=== PATIENT | female | born 1985 | race Caucasian/White ===

== ENCOUNTER → 2018-12-10 14:13 | Outpatient (CLI) | payer OTHER, BC, SELFPAY ==
[2018-12-10 17:04] LABS: GTT (PREG) 1 Hour PP 50gm Dose 125 mg/dL (76-139)
[2018-12-10 17:27] LABS: Hematocrit 36.9 % (36-46)
== END ==
PROVIDERS: PCP Nurse Practitioner Family; Visit Provider Obstetrics & Gynecology
DX: Z3A.23 23 weeks gestation of pregnancy (principal)
CPT/HCPCS: 36415; 82950; 85014; 85018

== ENCOUNTER 2019-02-21 10:16 | Inpatient (IN) | payer OTHER, BC, SELFPAY ==
[2019-02-21] VITALS (39 sets, daily range): BP systolic 136–213; BP diastolic 76–116; PULSE 69–96; RESP 11–24; TEMP 36–36.9; O2SAT 94–100; BMI 50.7; BMI 50.1
--- NOTE | 2019-02-21 | DI.CT.S_ITS ---
PROCEDURE: CT HEAD/BRAIN WO CON INDICATIONS: Severe hypertension, confusion TECHNIQUE: Noncontrast 4.5 mm thick angled axial sections acquired from the foramen magnum to the vertex, with coronal and sagittal reformats. For radiation dose reduction, the following was used: automated exposure control, adjustment of mA and/or kV according to patient size. COMPARISON: [facility], CT, CT HEAD/BRAIN WO CON, 02/21/2019, 11:04. FINDINGS: Image quality: Excellent. CSF spaces: Basal cisterns are patent. No extra-axial fluid collections. Ventricles are normal in size and shape. Brain: No midline shift. No intracranial masses or hemorrhage. Reid-white matter interface is normal. Skull and face: Calvarium and visualized facial bones are intact, without suspicious lesions. Sinuses: Visualized sinuses and mastoids are clear. IMPRESSION: No acute intracranial process Dictated by: Foreign Godfrey M.D. on 02/21/2019 at 19:01 Approved by: Foreign Godfrey M.D. on 02/21/2019 at 19:03
--- NOTE | 2019-02-21 10:32 | ED.HA ---
HPI - Headache General Chief Complaint: Headache Stated Complaint: Headache t-2 days Time Seen by Provider: 02/21/19 10:32 Source: patient Mode of arrival: ambulatory Limitations: no limitations History of Present Illness HPI Narrative: Patient is a 33-year-old female currently 38 weeks scheduled for next week presenting with 4 days of a headache. She says she has not gotten headaches this entire until the last 4 days. She does have hypertension she is taking labetalol she did take it this morning. She had some visual changes she has difficulty speaking and difficulty walking. Her headache got extremely bad last night it has not let up. No fever. No abdominal pain. 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 Overall she is not able to answer all questions confused on year MD Complaint: headache Related Data Previous Rx's Medication Instructions Recorded labetalol 100 mg tablet 100 mg PO BID #60 tab 12/10/18 hydroxyzine HCl 25 mg tablet 25 mg PO TID-QID PRN #20 tab 02/04/19 Allergies Allergy/AdvReac Type Severity Reaction Status Date / Time adhesive AdvReac Mild Rash Verified 02/21/19 10:55 silicone AdvReac Mild Rash and Verified 02/21/19 10:55 Hives Review of Systems Review of Systems ROS Unobtainable: All systems reviewed & are unremarkable except as noted in HPI and below Constitutional Denies chills, Denies fever(s), Reports headache(s), Denies lethargy and Denies weakness Eyes Reports blurry vision ENT Ears, Nose, Mouth, and Throat: Denies change in voice, Reports headache(s), Denies neck pain and Denies sore throat Cardiovascular Denies chest pain, Denies irregular heart rhythm, Denies lightheadedness, Denies palpitations, Denies dyspnea, Denies dyspnea on exertion and Denies orthopnea Respiratory Denies cough, Denies dyspnea, Denies dyspnea on exertion and Denies wheezing Gastrointestinal Gastrointestinal: Denies abdominal pain, Denies change in bowel habits, Denies diarrhea, Denies nausea and Denies vomiting Genitourinary Denies hematuria, Denies flank pain, Denies urinary incontinence and Denies urinary urgency Musculoskeletal Denies neck pain Integumentary/Breasts Denies pruritus, Denies erythema, Denies rash and Denies wounds Neurologic Reports headache(s) and Denies weakness Endocrine Denies palpitations Allergic/Immunologic Denies wheezing [facility] Medical History Hypertension (Acute) Social History Smoking Status: Former smoker Social History Smoking Status: Never smoker Exam Initial Vital Signs Initial Vital Signs: Vital Signs Temperature 98.4 F 02/21/19 10:34 Pulse Rate 82 02/21/19 10:34 Respiratory Rate 20 02/21/19 10:34 Blood Pressure 158/82 H 02/21/19 10:34 Pulse Oximetry 100 02/21/19 10:34 GENERAL: Alert gravid female mild distress HEENT: Head atraumatic,EOMI, pupils reactive, face symmetric, CARDIOVASCULAR: Regular rate and rhythm without murmurs, rubs or gallops. RESPIRATORY: Breath sounds equal bilaterally, no wheezes rales or rhonchi. ABDOMEN: Soft, nontender. Normoactive bowel sounds all 4 quadrants. No guarding or rebound. EXTREMITIES: Normal range of motion, no clubbing or edema. Neurovascularly intact NEUROLOGICAL: Alert and oriented x2. Some intermittent aphasia. Does not understand all commands only some commands. Took a long time to figure out finger to nose. she lifted up both lower extremities and held them for 5 seconds but unable to understand [id number]. Very confused no facial droop SKIN: Warm, dry, no laceration, no petechiae, no rashes or lesions. Course Orders Ordered: ED Orders 02/21/19 10:43 CT head/brain wo con Stat 02/21/19 10:50 Complete Blood Count AUTO DIFF Stat Comprehensive Metabolic Panel Stat Partial Thromboplastin Time Stat Prothrombin Time INR Stat 02/21/19 10:55 Uric Acid Stat Urinalysis and Microscopic Stat 02/21/19 12:52 Packed Cells Stat Type and Screen Stat 02/21/19 16:07 MRSA PCR Urgent 02/21/19 16:29 Consult to Bench Tool Maker Routine Education, smoking cessation ONGOING 02/21/19 17:55 Basic Metabolic Panel Urgent Complete Blood Count AUTO DIFF Urgent Hepatic (Liver) Panel Urgent Magnesium Urgent Uric Acid Urgent 02/21/19 23:59 Magnesium Urgent Acetaminophen (Tylenol) 650 mg PO Q6HR PRN PRN Reason: As Needed for Fever/Mild Pain Docusate Sodium (Colace) 250 mg PO DAILY [facility] Emollient Ointment (Weo-B-Flysno) 1 applic TOP PRN PRN PRN Reason: Magnesium Sulfate (Magnesium Sulfate) 20 gm in 500 mls @ 50 mls/hr IV CONT [facility] Last Admin: 02/21/19 13:00 Dose: 50 mls/hr Lactated Ringer's (Lactated Ringers) 1,000 mls @ 25 mls/hr IV CONT [facility] Last Admin: 02/21/19 17:31 Dose: 25 mls/hr HYDROMORPHONE BOX ESTIMATOR (6MG/30ML) (Dilaudid Rope Rider (6mg/30ml)) 6 mg in 30 mls @ 0 mls/hr IV Q8HR PRN PRN Reason: moderate pain Ibuprofen (Advil) 600 mg PO Q6HR PRN PRN Reason: As Needed for Fever/Mild Pain Ketorolac Tromethamine (Toradol) 30 mg IV Q6HR [facility] Stop: 02/22/19 12:01 Magnesium Hydroxide (Milk Of Magnesia) 30 ml PO BEDTIME PRN PRN Reason: Constipation Metoclopramide HCl (Reglan) 10 mg IV Q6HR PRN PRN Reason: Nausea And Vomiting Naloxone HCl (Narcan) 0.2 mg IV Q2MIN PRN PRN Reason: Opiate Reversal Naloxone HCl (Narcan) 0.2 mg IV Q2MIN PRN; Protocol PRN Reason: Opiate Reversal Ondansetron HCl (Zofran Odt) 4 mg PO Q6HR PRN PRN Reason: Nausea Ondansetron HCl (Zofran) 4 mg IV Q6HR PRN PRN Reason: Nausea And Vomiting Last Admin: 02/21/19 17:24 Dose: 4 mg Oxycodone HCl (Percolone) 5 mg PO Q4HR PRN PRN Reason: Pain, Moderate (4-6) Oxycodone/Acetaminophen (Percocet 5/325) 2 tab PO Q4HR PRN PRN Reason: Pain, Severe (7-10) Vit/Calcium/Iron/Folic Ac (Prenatabs Rx) 1 tab PO DAILY [facility] Rho Immune Globulin (Hyperrho S-D) 1,500 unit IM NOW PRN PRN Reason: Mom Rh neg, Infant Rh pos Discontinued Medications Carboprost Tromethamine (Hemabate) 250 mcg IM NOW ONE Stop: 02/21/19 15:10 Last Admin: 02/21/19 15:11 Dose: 250 mcg Diphtheria/Tetanus/Acell Pertussis (Adacel) 0.5 ml IM .ONCE ONE Stop: 02/21/19 16:30 Hydralazine HCl (Apresoline) 10 mg IV NOW ONE Stop: 02/21/19 12:09 Last Admin: 02/21/19 12:08 Dose: 10 mg Hydralazine HCl (Apresoline) 10 mg IV Q20M PRN PRN Reason: Hypertension Hydromorphone HCl (Dilaudid) 0.25 mg IV Q5MIN PRN PRN Reason: Pain, Mild (1-3) Hydromorphone HCl (Dilaudid) 0.5 mg IV Q5MIN PRN PRN Reason: Pain, Moderate (4-6) Last Admin: 02/21/19 15:38 Dose: 0.5 mg Admin: 02/21/19 15:11 Dose: 0.5 mg Admin: 02/21/19 15:01 Dose: 0.5 mg Admin: 02/21/19 14:55 Dose: 0.5 mg Hydromorphone HCl (Dilaudid) 1 mg IV Q5MIN PRN PRN Reason: Pain, Severe (7-10) Hydroxyzine HCl (Vistaril) 25 mg IM NOW PRN PRN Reason: Pain, Mild (1-3) Sodium Chloride (Normal Saline 0.9%) 1,000 mls @ 1,000 mls/hr IV BOLUS ONE Stop: 02/21/19 11:42 Last Admin: 02/21/19 11:15 Dose: 1,000 mls/hr Magnesium Sulfate (Magnesium Sulfate) 4 gm in 100 mls @ 50 mls/hr IV NOW ONE Stop: 02/21/19 14:19 Last Infusion: 02/21/19 13:00 Dose: 0 mls/hr Admin: 02/21/19 12:20 Dose: 50 mls/hr Cefazolin Sodium/Dextrose (Ancef) 2 gm in 100 mls @ 200 mls/hr IV NOW ONE Stop: 02/21/19 15:33 Last Infusion: 02/21/19 13:21 Dose: 0 mls/hr Admin: 02/21/19 13:15 Dose: 200 mls/hr Acetaminophen (Ofirmev) 1,000 mg in 100 mls @ 400 mls/hr IV NOW ONE Stop: 02/21/19 15:18 Last Infusion: 02/21/19 17:18 Dose: 0 mls/hr Infusion: 02/21/19 13:31 Dose: 400 mls/hr Admin: 02/21/19 13:20 Dose: 400 mls/hr Calcium Gluconate 4.65 meq/ (Dextrose) 60 mls @ 120 mls/hr IV NOW ONE Stop: 02/21/19 17:09 Labetalol HCl (Trandate) 10 mg IV NOW ONE Stop: 02/21/19 10:44 Last Admin: 02/21/19 10:56 Dose: 10 mg Labetalol HCl (Trandate) 10 mg IV NOW ONE Stop: 02/21/19 11:24 Last Admin: 02/21/19 11:23 Dose: 10 mg Labetalol HCl (Trandate) 10 mg IV Q20M PRN PRN Reason: Blood Pressure - High Last Admin: 02/21/19 14:58 Dose: 10 mg Labetalol HCl (Trandate) 10 mg IV NOW ONE Stop: 02/21/19 17:13 Measles/Mumps/Rubella Vaccine Live (Mmr Ii Vaccine With Diluent) 0.5 ml SUBCUT .ONCE ONE Stop: 02/21/19 16:30 Morphine Sulfate (Morphine) 4 mg IV NOW ONE Stop: 02/21/19 11:27 Last Admin: 02/21/19 11:27 Dose: 4 mg Ondansetron HCl (Zofran) 4 mg IV NOW ONE Stop: 02/21/19 11:43 Last Admin: 02/21/19 11:42 Dose: 4 mg Oxytocin (Pitocin) 10 unit IM NOW ONE Stop: 02/21/19 15:10 Last Admin: 02/21/19 14:00 Dose: 10 unit Vital Signs - 8 hr 02/21/19 10:34 02/21/19 11:12 02/21/19 11:21 Temperature 98.4 F Pulse Rate 82 78 78 Respiratory Rate 20 14 Blood Pressure 158/82 H 181/106 H Blood Pressure [Left Arm] 173/112 H Pulse Oximetry 100 100 02/21/19 11:23 02/21/19 11:30 02/21/19 12:07 Temperature Pulse Rate 82 78 79 Respiratory Rate 16 19 Blood Pressure 176/105 H 182/111 H Blood Pressure [Left Arm] 176/104 H Pulse Oximetry 100 100 02/21/19 12:08 02/21/19 14:31 02/21/19 14:36 Temperature 97.4 F L Pulse Rate 78 92 H 88 Respiratory Rate 13 13 Blood Pressure 213/116 H 168/99 H 165/94 H Blood Pressure [Left Arm] Pulse Oximetry 96 98 02/21/19 14:41 02/21/19 14:46 02/21/19 14:49 Temperature Pulse Rate 77 90 83 Respiratory Rate 12 13 19 Blood Pressure 174/104 H 173/100 H 147/88 H Blood Pressure [Left Arm] Pulse Oximetry 96 99 100 02/21/19 14:51 02/21/19 14:56 02/21/19 15:01 Temperature 97.7 F Pulse Rate 85 94 H 80 Respiratory Rate 17 16 11 L Blood Pressure 179/99 H 178/100 H 161/90 H Blood Pressure [Left Arm] Pulse Oximetry 98 99 99 02/21/19 15:04 02/21/19 15:06 02/21/19 15:16 Temperature Pulse Rate 84 78 Respiratory Rate 12 14 Blood Pressure 213/116 H 148/88 H 166/92 H Blood Pressure [Left Arm] Pulse Oximetry 98 97 02/21/19 15:21 02/21/19 15:26 02/21/19 15:42 Temperature 98.5 F 96.8 F L Pulse Rate 76 80 89 Respiratory Rate 15 16 18 Blood Pressure 165/95 H 164/94 H 147/82 H Blood Pressure [Left Arm] Pulse Oximetry 100 100 100 02/21/19 15:54 02/21/19 16:15 02/21/19 16:29 Temperature 97.3 F L Pulse Rate 91 H 89 89 Respiratory Rate 15 16 Blood Pressure 142/79 H 149/89 H 154/94 H Blood Pressure [Left Arm] Pulse Oximetry 98 97 99 02/21/19 17:00 02/21/19 17:08 02/21/19 17:13 Temperature Pulse Rate 69 70 79 Respiratory Rate 14 16 Blood Pressure 150/88 H 136/82 153/91 H Blood Pressure [Left Arm] Pulse Oximetry 95 97 02/21/19 17:14 02/21/19 17:15 02/21/19 18:00 Temperature Pulse Rate 87 70 73 Respiratory Rate 16 15 Blood Pressure 148/90 H 159/94 H 149/81 H Blood Pressure [Left Arm] Pulse Oximetry 97 98 02/21/19 18:09 Temperature Pulse Rate 81 Respiratory Rate Blood Pressure 142/85 H Blood Pressure [Left Arm] Pulse Oximetry MDM - Headache Lab Data Attestation: I reviewed the patient's lab results. Result diagrams: 02/21/19 17:55 02/21/19 17:55 Lab Results 02/21/19 02/21/19 02/21/19 Range/Units 10:50 10:50 10:50 WBC 11.5 H (4.5-11.0) X10^3/uL RBC 4.05 (4.0-5.2) X10^6/uL Hgb 11.9 L (12.0-16.0) g/dL Hct 35.4 L (36-46) % MCV 87.5 (80-100) fL MCH 29.3 (26-34) PG MCHC 33.5 (30-36) % RDW 13.0 (11.6-14.8) % Plt Count 195 (150-400) X10^3/uL Neut % (Auto) 70.6 (50-75) % Lymph % (Auto) 22.1 L (25-40) % [place] % (Auto) 6.4 (3-14) % Eos % (Auto) 0.6 L (2-4) % Baso % (Auto) 0.3 (0-2) % Neut # (Auto) 8100 H (5031-0345) /uL Lymph # (Auto) 2500 (7904-6868) /uL [place] # (Auto) 700 (0-900) /uL Eos # (Auto) 100 (0-450) /uL Baso # (Auto) 0 (0-100) /uL PT 10.3 (10.1-12.7) SECONDS INR 0.9 (0.9-1.3) APTT 26 L (26.4-36.2) SECONDS Sodium 136 L (137-145) mmol/L Potassium 3.9 (3.4-5.1) mmol/L Chloride 106 (98-107) mmol/L Carbon Dioxide 21 L (22-32) mmol/L BUN 7 (7-17) mg/dL Creatinine 0.70 (0.52-1.04) mg/dL Estimated GFR > 60.0 (>60) mL/min BUN/Creatinine Ratio 10.0 (6-22) Glucose 111 H (70-100) mg/dL Uric Acid (2.5-6.2) mg/dL Calcium 9.2 (8.4-10.2) mg/dL Total Bilirubin 0.4 (0.2-1.3) mg/dL Conjugated Bilirubin (0.0-0.3) md/dL Unconjugated Bilirubin (0.0-1.1) mg/dL AST 42 H (14-36) IU/L ALT 52 (9-52) IU/L Alkaline Phosphatase 134 H (38-126) U/L Total Protein 6.3 (6.3-8.2) g/dL Albumin 3.4 L (3.5-5.0) g/dL Globulin 2.9 (1.7-4.1) g/dL Albumin/Globulin Ratio 1.2 (1.0-2.8) Urine Color Urine Appearance Urine pH (4.5-8.0) Ur Specific [place] (1.000-1.035) Urine Protein (Negative) Urine Glucose (UA) (Negative) g/dL Urine Ketones (NEGATIVE) Urine Occult Blood (Negative) Urine Nitrate (Negative) Urine Bilirubin (NEGATIVE) Urine Urobilinogen (0.2) E.U./dL Ur Leukocyte Esterase (NEGATIVE) Urine RBC (0-5/HPF) Urine WBC (0-5/HPF) Ur Squamous Epith Cells (0-5/HPF) Urine Bacteria (None) Ur Culture Indicated? Blood Type Antibody Screen Crossmatch 02/21/19 02/21/19 02/21/19 Range/Units 10:55 10:55 12:52 WBC (4.5-11.0) X10^3/uL RBC (4.0-5.2) X10^6/uL Hgb (12.0-16.0) g/dL Hct (36-46) % MCV (80-100) fL MCH (26-34) PG MCHC (30-36) % RDW (11.6-14.8) % Plt Count (150-400) X10^3/uL Neut % (Auto) (50-75) % Lymph % (Auto) (25-40) % [place] % (Auto) (3-14) % Eos % (Auto) (2-4) % Baso % (Auto) (0-2) % Neut # (Auto) (8739-3910) /uL Lymph # (Auto) (5851-4136) /uL [place] # (Auto) (0-900) /uL Eos # (Auto) (0-450) /uL Baso # (Auto) (0-100) /uL PT (10.1-12.7) SECONDS INR (0.9-1.3) APTT (26.4-36.2) SECONDS Sodium (137-145) mmol/L Potassium (3.4-5.1) mmol/L Chloride (98-107) mmol/L Carbon Dioxide (22-32) mmol/L BUN (7-17) mg/dL Creatinine (0.52-1.04) mg/dL Estimated GFR (>60) mL/min BUN/Creatinine Ratio (6-22) Glucose (70-100) mg/dL Uric Acid 4.8 (2.5-6.2) mg/dL Calcium (8.4-10.2) mg/dL Total Bilirubin (0.2-1.3) mg/dL Conjugated Bilirubin (0.0-0.3) md/dL Unconjugated Bilirubin (0.0-1.1) mg/dL AST (14-36) IU/L ALT (9-52) IU/L Alkaline Phosphatase (38-126) U/L Total Protein (6.3-8.2) g/dL Albumin (3.5-5.0) g/dL Globulin (1.7-4.1) g/dL Albumin/Globulin Ratio (1.0-2.8) Urine Color Yellow Urine Appearance Cloudy Urine pH 7.0 (4.5-8.0) Ur Specific [place] 1.020 (1.000-1.035) Urine Protein 2+ H (Negative) Urine Glucose (UA) Negative (Negative) g/dL Urine Ketones Negative (NEGATIVE) Urine Occult Blood Trace-intact (Negative) Urine Nitrate Negative (Negative) Urine Bilirubin Negative (NEGATIVE) Urine Urobilinogen 0.2 (0.2) E.U./dL Ur Leukocyte Esterase Negative (NEGATIVE) Urine RBC 1-5/hpf (0-5/HPF) Urine WBC 5-10/hpf H (0-5/HPF) Ur Squamous Epith Cells >30 /hpf H (0-5/HPF) Urine Bacteria Many (>30) H (None) Ur Culture Indicated? Cult not indicated Blood Type B Positive Antibody Screen Negative Crossmatch See Detail 02/21/19 02/21/19 Range/Units 17:55 17:55 WBC 21.2 H D (4.5-11.0) X10^3/uL RBC 3.08 L (4.0-5.2) X10^6/uL Hgb 9.0 L (12.0-16.0) g/dL Hct 27.2 L (36-46) % MCV 88.3 (80-100) fL MCH 29.3 (26-34) PG MCHC 33.2 (30-36) % RDW 12.6 (11.6-14.8) % Plt Count 250 (150-400) X10^3/uL Neut % (Auto) 82.9 H (50-75) % Lymph % (Auto) 10.5 L (25-40) % [place] % (Auto) 6.4 (3-14) % Eos % (Auto) 0.1 L (2-4) % Baso % (Auto) 0.1 (0-2) % Neut # (Auto) 10815 H (1842-9153) /uL Lymph # (Auto) 2200 (7876-8195) /uL [place] # (Auto) 1400 H (0-900) /uL Eos # (Auto) 0 (0-450) /uL Baso # (Auto) 0 (0-100) /uL PT (10.1-12.7) SECONDS INR (0.9-1.3) APTT (26.4-36.2) SECONDS Sodium 131 L (137-145) mmol/L Potassium 4.1 (3.4-5.1) mmol/L Chloride 105 (98-107) mmol/L Carbon Dioxide 18 L (22-32) mmol/L BUN 7 (7-17) mg/dL Creatinine 0.60 (0.52-1.04) mg/dL Estimated GFR > 60.0 (>60) mL/min BUN/Creatinine Ratio 11.7 (6-22) Glucose 115 H (70-100) mg/dL Uric Acid 4.4 (2.5-6.2) mg/dL Calcium 7.6 L (8.4-10.2) mg/dL Total Bilirubin 0.2 (0.2-1.3) mg/dL Conjugated Bilirubin 0.0 (0.0-0.3) md/dL Unconjugated Bilirubin 0.2 (0.0-1.1) mg/dL AST 47 H (14-36) IU/L ALT 54 H (9-52) IU/L Alkaline Phosphatase 111 (38-126) U/L Total Protein 5.1 L (6.3-8.2) g/dL Albumin 2.6 L (3.5-5.0) g/dL Globulin 2.5 (1.7-4.1) g/dL Albumin/Globulin Ratio 1.0 (1.0-2.8) Urine Color Urine Appearance Urine pH (4.5-8.0) Ur Specific [place] (1.000-1.035) Urine Protein (Negative) Urine Glucose (UA) (Negative) g/dL Urine Ketones (NEGATIVE) Urine Occult Blood (Negative) Urine Nitrate (Negative) Urine Bilirubin (NEGATIVE) Urine Urobilinogen (0.2) E.U./dL Ur Leukocyte Esterase (NEGATIVE) Urine RBC (0-5/HPF) Urine WBC (0-5/HPF) Ur Squamous Epith Cells (0-5/HPF) Urine Bacteria (None) Ur Culture Indicated? Blood Type Antibody Screen Crossmatch Imaging Data CT scan - head: Radiologist's impression: PROCEDURE: CT HEAD/BRAIN WO CON INDICATIONS: severe headache, difficulty speaking, 38wks TECHNIQUE: Noncontrast 4.5 mm thick angled axial sections acquired from the foramen magnum to the vertex, with coronal and sagittal reformats. For radiation dose reduction, the following was used: automated exposure control, adjustment of mA and/or kV according to patient size. COMPARISON: None. FINDINGS: Image quality: Excellent. CSF spaces: Basal cisterns are patent. No extra-axial fluid collections. Ventricles are normal in size and shape. Brain: No midline shift. No intracranial masses or hemorrhage. Reid-white matter interface is normal. Skull and face: Calvarium and visualized facial bones are intact, without suspicious lesions. Sinuses: Visualized sinuses and mastoids are clear. IMPRESSION: No acute intracranial process. Discussed with Dr. Mcnamara at 1120 hrs. Dictated by: Kelly Charles M.D. on 02/21/2019 at 11:17 MDM Narrative Medical decision making narrative: Patient is very confused. She is only able follow some commands some of the time. Not able to answer questions. Has been states this is very atypical for her. Patient is quite hypertensive signs of preeclampsia. She was also immediately given labetalol. Discussed at length with and patient risk of radiation and CT. She is 3rd trimester risk is lower, and I feel her balance problems change in behavior inability to comprehend she definitely needs a head CT to rule out any sort of intracranial hemorrhage. She also also had a worse headache of her. did agree to the head CT. Luckily head CT was negative. Dr. Lerma was immediately contacted after negative head CT, agrees patient is preeclamptic and likely need . Patient transferred to L&D as soon as Critical Care Time Critical Care Time: Yes Total Critical Care Time: 30 Attestation: The high probability of a clinically significant, sudden or life threatening deterioration of the [cardiovascular] system(s) required my full and direct attention, intervention and personal management. The aggregate critical care time was 30 minutes. This time is in addition to time spent performing reported procedures but includes the following: [x] Data Review and interpretation [x] Patient assessment and monitoring of vital signs [x] Documentation [x] Medication orders and management Discharge Plan Departure Patient Disposition: Admitted As Inpatient Clinical Impression: Preeclampsia complicating hypertension Discharge Date/Time: 02/21/19 12:00 Interventions: ED Discharge Assessment Last Done: 02/21/19 12:07 Referrals: Nicole Kaufman ARNP [Primary Care Provider] - Admit Date/Time: 02/21/19 11:41 Admit Provider: Edna Lerma
--- NOTE | 2019-02-21 10:43 | DI.CT.S_ITS ---
PROCEDURE: CT HEAD/BRAIN WO CON INDICATIONS: severe headache, difficulty speaking, 38wks TECHNIQUE: Noncontrast 4.5 mm thick angled axial sections acquired from the foramen magnum to the vertex, with coronal and sagittal reformats. For radiation dose reduction, the following was used: automated exposure control, adjustment of mA and/or kV according to patient size. COMPARISON: None. FINDINGS: Image quality: Excellent. CSF spaces: Basal cisterns are patent. No extra-axial fluid collections. Ventricles are normal in size and shape. Brain: No midline shift. No intracranial masses or hemorrhage. Reid-white matter interface is normal. Skull and face: Calvarium and visualized facial bones are intact, without suspicious lesions. Sinuses: Visualized sinuses and mastoids are clear. IMPRESSION: No acute intracranial process. Discussed with Dr. Mcnamara at 1120 hrs. Dictated by: Kelly Charles M.D. on 02/21/2019 at 11:17 Approved by: Kelly Charles M.D. on 02/21/2019 at 11:20
[2019-02-21] MEDS: LABETALOL 20 MG/4 ML SYRINGE 10 MG IV ×3 (10:56→14:58)
[2019-02-21 10:58] LABS: Add Manual Diff / Slide Review NO; Basophils Absolute Auto 0 /uL (0-100); Basophils Percent Auto 0.3 % (0-2); Eosinophils Absolute Auto 100 /uL (0-450); Eosinophils Percent Auto 0.6 % (2-4); Hematocrit 35.4 % (36-46); Hemoglobin 11.9 g/dL (12.0-16.0); Lymphocytes Absolute Auto 2500 /uL (1100-4500); Lymphocytes Percent Auto 22.1 % (25-40); Mean Corpuscular HGB Conc 33.5 % (30-36); Mean Corpuscular Hemoglobin 29.3 PG (26-34); Mean Corpuscular Volume 87.5 fL (80-100); Monocytes Absolute Auto 700 /uL (0-900); Monocytes Percent Auto 6.4 % (3-14); Neutrophils Absolute Auto 8100 /uL (1500-7000); Neutrophils Percent Auto 70.6 % (50-75); Platelet Count 195 X10^3/uL (150-400); Red Blood Cell Count 4.05 X10^6/uL (4.0-5.2); White Blood Cell Count 11.5 X10^3/uL (4.5-11.0)
[2019-02-21 11:02] LABS: Appearance Urine UA CLOUDY; Bilirubin Urine UA NEGATIVE (NEGATIVE); Color Urine UA YELLOW; Glucose Urine UA NEGATIVE (Negative); Ketones Urine UA NEGATIVE (NEGATIVE); Leukocyte Esterase Urine UA NEGATIVE (NEGATIVE); Nitrite Urine UA NEGATIVE (Negative); Occult Blood Urine UA TRACE-INTACT (Negative); Protein Urine UA 2+ (Negative); Urobilinogen Urine UA 0.2 E.U./dL (0.2)
[2019-02-21 11:06] LABS: INR 0.9 (0.9-1.3); Prothrombin Time 10.3 SECONDS (10.1-12.7)
[2019-02-21 11:09] LABS: Alanine Aminotransferase 52 IU/L (9-52); Albumin 3.4 g/dL (3.5-5.0); Albumin Globulin Ratio 1.2 (1.0-2.8); Alkaline Phosphatase 134 U/L (38-126); Aspartate Aminotransferase 42 IU/L (14-36); Bilirubin Total 0.4 mg/dL (0.2-1.3); Blood Urea Nitrogen 7 mg/dL (7-17); Calcium 9.2 mg/dL (8.4-10.2); Carbon Dioxide 21 mmol/L (22-32); Chloride 106 mmol/L (98-107); Estimated Glomerular Filt Rate > 60.0 mL/min (>60); Globulin 2.9 g/dL (1.7-4.1); Glucose 111 mg/dL (70-100); HEMOLYSIS < 15 (0-50); PTT Partial Thromboplastin Tim 26 SECONDS (26.4-36.2); Potassium 3.9 mmol/L (3.4-5.1); Sodium 136 mmol/L (137-145); Total Protein 6.3 g/dL (6.3-8.2)
[2019-02-21] MEDS: SODIUM CHLORIDE 0.9% 1,000 ML 1000 ML IV (11:15)
[2019-02-21 11:23] LABS: Bacteria Urine Many (>30); Culture Indicated Urine Cult Not Indicated; RBC Urine 1-5/HPF (0-5/HPF); Squamous Epithelial Cell Urine >30 /HPF (0-5/HPF); WBC Urine 5-10/HPF (0-5/HPF)
[2019-02-21] MEDS: MORPHINE 4 MG/ML INJ IV (11:27)
--- NOTE | 2019-02-21 11:30 | PC.NURSE ---
upon my arrival to department @1100 assumed care of this patient. Remaining one on one at bedside. Escorted pt to CT. Pt remains confused and in 10/10 pain. BP remains high at 182/106 Dr. Mcnamara notified and verbal order obtained for labetalol and morphine. Pt still confused and arguing with her about the year. Pt states it is 1984. This RN remains at bedside.
[2019-02-21 11:34] LABS: Uric Acid 4.8 mg/dL (2.5-6.2)
[2019-02-21] MEDS: ONDANSETRON 4 MG/2 ML INJ IV ×2 (11:42→17:24)
[2019-02-21] MEDS: HYDRALAZINE 20 MG/ML VIAL 10 MG IV (12:08)
--- NOTE | 2019-02-21 12:13 | PC.NURSE ---
1130- pt remains confused on year. She know, place, situation, and who she is. Pt upon preparing to exit department to go to L&D pt became nauseated and vomiting, verbal order for sahilfran obtained. Pt to L&D with this RN and nursing students and instructor via stretcher with manager monitoring. Pt settled in new room and offered bedside report to RN.
[2019-02-21] MEDS: MAGNESIUM SULFATE 4 GM/100 ML PIGGYBACK IV (12:20)
[2019-02-21] MEDS: MAGNESIUM SULFATE 20 GM/500 ML IV.SOLN IV ×2 (13:00→22:47)
[2019-02-21] MEDS: CEFAZOLIN 2 GM/100 ML FROZ.PIGGY IV (13:15)
[2019-02-21] MEDS: ACETAMINOPHEN IV 1,000 MG/100 ML VIAL 400 MG IV (13:20)
[2019-02-21] MEDS: OXYTOCIN 10 UNIT/ML VIAL IM (14:00)
--- NOTE | 2019-02-21 14:46 | SUR.OPER ---
Supine on Padded OR bed, head on pillow, safety belt at thigh, arms secured on padded arm boards at <90 degrees abduction. Bump under right buttock. Legs uncrossed with pillow under knees, gel pad to heels, tape over blanket to lower legs.
--- NOTE | 2019-02-21 14:50 | SUR.PHASEI ---
KALEB MICHAELG OBSERVED TO BE C/D/I UPON ARRIVAL TO PACU. TRICIA-PAD OBSERVED TO HAVE SMALL AMOUNT OF RED BLOOD ON TRICIA-PAD. PT KNOWS THE DAY AND ABLE TO IDENIFITY WHERE SHE IS AND WHY BUT UNABLE TO GIVE THE CURRENT YEAR WHEN ASKED. PT REPORTS THE YEAR IS 1984.
[2019-02-21] MEDS: HYDROMORPHONE 2 MG INJ 0.5 MG IV ×4 (14:55→15:38)
[2019-02-21] MEDS: CARBOPROST 250 MCG/ML AMPUL IM (15:11)
--- NOTE | 2019-02-21 15:19 | SUR.PHASEI ---
BEDSIDE REPORT GIVEN TO MELODIE BRAVO. PT IN STABLE CONDITION, VSS. PT LAYING IN BED WITH EYES CLOSED, EASILY AROUSABLE TO VOICE WHEN SPOKEN TO. PT CONTIINUES TO HAVE ALTERED MENTAL STATUS. PT ABLE TO IDENTIFY WHERE SHE IS AND WHY SHE IS AT THE HOSPITAL BUT UNABLE TO IDENTIFY THE CURRENT YEAR. PT TOLERATING ICE CHIPS WITHOUT ANY DIFFICULTLY. PT DENIES ANY NAUSEA.
--- NOTE | 2019-02-21 15:40 | SUR.PHASEI ---
assumed care of pt at this time. pt sitting up talking with ob nurse at bedside with and baby at side. pt appears comfortable at this time.
--- NOTE | 2019-02-21 15:52 | SUR.PHASEI ---
REPORT CALLED TO MELODIE RICHARDS IN ICU. PT IN STABLE CONDITION, VSS. PT ALERT AND TALKING TO RN AND AND OB RN AT BEDSIDE.
--- NOTE | 2019-02-21 16:22 | SUR.PHASEI ---
PT TRANSFERRED TO ICU IN STABLE CONDITION, VSS. PT ALERT AND TALKING TO STAFF. BEDSIDE REPORT GIVEN TO MELODIE RICHARDS UPON ARRIVAL TO ICU. PT BABY AND PT AT BEDSIDE. TRANSFERRED CARE OF PT TO MELODIE RICHARDS AT THAT TIME.
--- NOTE | 2019-02-21 17:24 | PM.GYNOP.1 ---
Operative Date/Time/Diagnoses Date of procedure: 02/21/19 Time of procedure: 14:30 Pre-op diagnosis: 38 weeks gestation Severe preeclampsia Severe hypertension Post-op diagnosis: same Procedure: Procedures Operation Date: 02/21/19 12:30 Actual Procedures Side Surgeon p Section-Primary Not Applicable Claudette Albright MD Indications: 38 weeks gestation Severe preeclampsia Severe hypertension Surgeon: Claudette Albright [employer] Instructor: Edna Lerma Anesthesia Type: General Operative Notes Findings: Live female infant in direct OP presentation Normal uterus, tubes and ovaries Closure Type: primary Specimen(s): other (Cord bloods, cord pH) Applied: catheter (with urimeter) Estimated blood loss (mL): 500 Blood products transfused: none Procedure in detail: The patient was taken to the operating room where she was placed in the dorsal supine position with a leftward tilt. General endotracheal anesthesia was administered. She was prepped and draped in the usual sterile fashion. A timeout was performed. A Pfannenstiel incision was made two fingerbreadths above the pubic symphysis and carried through to the underlying layer fascia. The fascia was nicked in the midline, and the incision extended bilaterally with the Powell scissors. The superior aspect of the fascial incision was grasped with a Gregory clamps, elevated, and the underlying rectus muscles dissected off sharply and bluntly. Attention was then turned to the inferior aspect of this incision which in a similar fashion was grasped with a Swink clamps, elevated, and the underlying rectus muscles dissected off sharply and bluntly. The rectus muscles were in the midline. The peritoneum was identified, grasped between 2 hemostats, and entered sharply with the Metzenbaum scissors. This incision was extended superiorly and inferiorly with good visualization of the bladder. The bladder blade was inserted. The vesicouterine peritoneum was identified, grasped with the pickup, and entered sharply with the Metzenbaum scissors. This incision was extended bilaterally, and the bladder flap was created digitally. The bladder blade was reinserted. The lower uterine segment was incised in a transverse fashion with the scalpel. Upon entering the amniotic sac there was a large amount of clear amniotic fluid. The infant's head was delivered without difficulty. The nose and mouth were suctioned with bulb suction. The remainder of the body delivered without difficulty. The cord was double clamped and cut. The was handed off to waiting RN and RT. The placenta was delivered manually. The uterus was cleared of all clots and debris. The uterine incision was repaired with #1 chromic in a running interlocking fashion, and a second layer the same suture was used for an imbricating layer. There was a small amount of bleeding from the right edge of the incision and a odxcxa-[id number]-[id number] suture was placed for hemostasis. The tubes and ovaries were examined and were found to be normal. The gutters were cleared of all clots and debris. The bladder flap was reapproximated using 2-0 Vicryl in a running fashion. The parietal peritoneum was closed using 2-0 Vicryl in a running fashion. The fascia was reapproximated using 0 Vicryl in a running fashion. Subcutaneous layer was copiously irrigated with warm normal saline. 3 simple interrupted sutures of 3-0 Vicryl were placed to reapproximate the subcutaneous layer. The skin was closed with 4-0 undyed Vicryl in a subcuticular fashion. Steri-Strips were placed. An Aquacel dressing was placed. The uterus was expressed of a small amount of old blood. Sponge, lap, and instrument counts were correct x-2. The patient tolerated the procedure well, and was taken to PACU in stable condition. Complications: none Post-operative Condition: stable Disposition: ICU Plan for aftercare: ICU for at least 24 hours
--- NOTE | 2019-02-21 17:29 | P.HPOB_ITS ---
OB HPI Date/Time Date of admission: 02/21/19 Date Patient Seen: 02/21/19 Time Patient Seen: 12:30 History of Present Condition Chief complaint: Headache t-2 days : 1 Para: 0 Estimated Date of Delivery: 03/07/19 Estimated Gestational Age (weeks): 38 Narrative: Leigh Chong is a 33 year old female 1 para 0 at 38 weeks gestation who presented to the emergency room with a severe headache since last evening. Patient has had a headache on and off over the last couple of days. It has been steady since last night. She is a little confused and does not quite know where she is. She had a CT scan in the emergency department but did not show a bleed. Indications Operative indications ( section): preeclampsia (Severe) History of Present care: good care, initiated at week # (9) and number of visits (9) Dating criteria: LMP confirmed by 2nd trimester US Ultrasounds: normal 1st trimester US and normal mid trimester US Abnormal ultrasound findings: Bilateral choroid plexus cysts. Genetics and high chief risk officer consulted. cfDNA neg. Obstetrical complications: preeclampsia Medical complications: cardiovascular (hypertenison) Preadmission Labs Blood type: B (+) positive -: Antibody screen: negative, GBS status: unknown, HBsAG: negative, HIV: n egative and RPR/VDLR: negative -: Chlamydia screen: not detected and Gonorrhea screen: not detected -: Rubella: immune and Varicella: immune HCT: 36.9 HCAB: reactive Cell-free DNA: normal female 1 hr GTT: 125 Evaluation Evaluation Baseline heart rate: 130 Variability: Moderate (11-25) monitor accelerations: Present monitor decelerations: Absent Category of Tracing: I Laboratory results: Laboratory Tests 02/21/19 02/21/19 02/21/19 10:50 10:50 10:50 WBC 11.5 H RBC 4.05 Hgb 11.9 L Hct 35.4 L MCV 87.5 MCH 29.3 MCHC 33.5 RDW 13.0 Plt Count 195 Neut % (Auto) 70.6 Lymph % (Auto) 22.1 L [place] % (Auto) 6.4 Eos % (Auto) 0.6 L Baso % (Auto) 0.3 Neut # (Auto) 8100 H Lymph # (Auto) 2500 [place] # (Auto) 700 Eos # (Auto) 100 Baso # (Auto) 0 PT 10.3 INR 0.9 APTT 26 L Sodium 136 L Potassium 3.9 Chloride 106 Carbon Dioxide 21 L BUN 7 Creatinine 0.70 Estimated GFR > 60.0 BUN/Creatinine Ratio 10.0 Glucose 111 H Uric Acid Calcium 9.2 Total Bilirubin 0.4 AST 42 H ALT 52 Alkaline Phosphatase 134 H Total Protein 6.3 Albumin 3.4 L Globulin 2.9 Albumin/Globulin Ratio 1.2 Urine Color Urine Appearance Urine pH Ur Specific [place] Urine Protein Urine Glucose (UA) Urine Ketones Urine Occult Blood Urine Nitrate Urine Bilirubin Urine Urobilinogen Ur Leukocyte Esterase Urine RBC Urine WBC Ur Squamous Epith Cells Urine Bacteria Ur Culture Indicated? Blood Type Antibody Screen Crossmatch 02/21/19 02/21/19 02/21/19 10:55 10:55 12:52 WBC RBC Hgb Hct MCV MCH MCHC RDW Plt Count Neut % (Auto) Lymph % (Auto) [place] % (Auto) Eos % (Auto) Baso % (Auto) Neut # (Auto) Lymph # (Auto) [place] # (Auto) Eos # (Auto) Baso # (Auto) PT INR APTT Sodium Potassium Chloride Carbon Dioxide BUN Creatinine Estimated GFR BUN/Creatinine Ratio Glucose Uric Acid 4.8 Calcium Total Bilirubin AST ALT Alkaline Phosphatase Total Protein Albumin Globulin Albumin/Globulin Ratio Urine Color Yellow Urine Appearance Cloudy Urine pH 7.0 Ur Specific [place] 1.020 Urine Protein 2+ H Urine Glucose (UA) Negative Urine Ketones Negative Urine Occult Blood Trace-intact Urine Nitrate Negative Urine Bilirubin Negative Urine Urobilinogen 0.2 Ur Leukocyte Esterase Negative Urine RBC 1-5/hpf Urine WBC 5-10/hpf H Ur Squamous Epith Cells >30 /hpf H Urine Bacteria Many (>30) H Ur Culture Indicated? Cult not indicated Blood Type B Positive Antibody Screen Negative Crossmatch See Detail [facility] Medical History Hypertension (Acute) Social History Smoking Status: Former smoker Social History Smoking Status: Never smoker Meds Home Medications Medication Instructions Recorded Confirmed Type labetalol 100 mg tablet 100 mg PO BID #60 tab 12/10/18 02/21/19 Rx hydroxyzine HCl 25 mg tablet 25 mg PO TID-QID PRN #20 tab 02/04/19 02/21/19 Rx Allergies Allergy/AdvReac Type Severity Reaction Status Date / Time adhesive AdvReac Mild Rash Verified 02/21/19 10:55 silicone AdvReac Mild Rash and Verified 02/21/19 10:55 Hives Review of Systems Constitutional Constitutional: Reports as per HPI and Reports headache(s) Eyes Eyes: Reports blurry vision, Reports change in vision and Reports other visual disturbances ENT Ears, Nose, Mouth, and Throat: Yes headache(s) Cardiovascular Cardiovascular: Reports leg swelling Neurologic Neurologic: Reports headache(s) and Reports memory loss Psychiatric Psychiatric: Reports memory loss Exam Vital Signs (past 8 hours): - 02/21/19 10:34 02/21/19 11:12 02/21/19 11:21 Temperature 98.4 F Pulse Rate 82 78 78 Respiratory Rate 20 14 Blood Pressure 158/82 H 181/106 H Blood Pressure [Left Arm] 173/112 H Pulse Oximetry 100 100 02/21/19 11:23 02/21/19 11:30 02/21/19 12:07 Temperature Pulse Rate 82 78 79 Respiratory Rate 16 19 Blood Pressure 176/105 H 182/111 H Blood Pressure [Left Arm] 176/104 H Pulse Oximetry 100 100 02/21/19 12:08 02/21/19 14:31 02/21/19 14:36 Temperature 97.4 F L Pulse Rate 78 92 H 88 Respiratory Rate 13 13 Blood Pressure 213/116 H 168/99 H 165/94 H Blood Pressure [Left Arm] Pulse Oximetry 96 98 02/21/19 14:41 02/21/19 14:46 02/21/19 14:51 Temperature Pulse Rate 77 90 85 Respiratory Rate 12 13 17 Blood Pressure 174/104 H 173/100 H 179/99 H Blood Pressure [Left Arm] Pulse Oximetry 96 99 98 02/21/19 14:56 02/21/19 15:01 02/21/19 15:04 Temperature 97.7 F Pulse Rate 94 H 80 Respiratory Rate 16 11 L Blood Pressure 178/100 H 161/90 H 213/116 H Blood Pressure [Left Arm] Pulse Oximetry 99 99 02/21/19 15:06 02/21/19 15:16 02/21/19 15:21 Temperature Pulse Rate 84 78 76 Respiratory Rate 12 14 15 Blood Pressure 148/88 H 166/92 H 165/95 H Blood Pressure [Left Arm] Pulse Oximetry 98 97 100 02/21/19 15:26 02/21/19 15:42 02/21/19 15:54 Temperature 98.5 F 96.8 F L 97.3 F L Pulse Rate 80 89 91 H Respiratory Rate 16 18 15 Blood Pressure 164/94 H 147/82 H 142/79 H Blood Pressure [Left Arm] Pulse Oximetry 100 100 98 02/21/19 17:13 02/21/19 17:14 Temperature Pulse Rate 79 87 Respiratory Rate Blood Pressure 153/91 H 148/90 H Blood Pressure [Left Arm] Pulse Oximetry Oxygen Delivery Method Room Air Oxygen Flow Rate 2 Narrative Exam Narrative: Generally: Patient lying in bed, slightly confused, Lungs: Clear to auscultation bilaterally Cardiovascular: Regular rate and rhythm Fundal height: 41 cm Estimated weight: 9 lb Extremities: 1+ pitting edema to knees, DTRs 3+ Objective Labs Result Diagrams: 02/21/19 10:50 02/21/19 10:50 Labs: Laboratory Results - last 24 hr 02/21/19 02/21/19 02/21/19 10:50 10:50 10:50 WBC 11.5 H RBC 4.05 Hgb 11.9 L Hct 35.4 L MCV 87.5 MCH 29.3 MCHC 33.5 RDW 13.0 Plt Count 195 Neut % (Auto) 70.6 Lymph % (Auto) 22.1 L [place] % (Auto) 6.4 Eos % (Auto) 0.6 L Baso % (Auto) 0.3 Neut # (Auto) 8100 H Lymph # (Auto) 2500 [place] # (Auto) 700 Eos # (Auto) 100 Baso # (Auto) 0 PT 10.3 INR 0.9 APTT 26 L Sodium 136 L Potassium 3.9 Chloride 106 Carbon Dioxide 21 L BUN 7 Creatinine 0.70 Estimated GFR > 60.0 BUN/Creatinine Ratio 10.0 Glucose 111 H Uric Acid Calcium 9.2 Total Bilirubin 0.4 AST 42 H ALT 52 Alkaline Phosphatase 134 H Total Protein 6.3 Albumin 3.4 L Globulin 2.9 Albumin/Globulin Ratio 1.2 Urine Color Urine Appearance Urine pH Ur Specific [place] Urine Protein Urine Glucose (UA) Urine Ketones Urine Occult Blood Urine Nitrate Urine Bilirubin Urine Urobilinogen Ur Leukocyte Esterase Urine RBC Urine WBC Ur Squamous Epith Cells Urine Bacteria Ur Culture Indicated? Blood Type Antibody Screen Crossmatch 02/21/19 02/21/19 02/21/19 10:55 10:55 12:52 WBC RBC Hgb Hct MCV MCH MCHC RDW Plt Count Neut % (Auto) Lymph % (Auto) [place] % (Auto) Eos % (Auto) Baso % (Auto) Neut # (Auto) Lymph # (Auto) [place] # (Auto) Eos # (Auto) Baso # (Auto) PT INR APTT Sodium Potassium Chloride Carbon Dioxide BUN Creatinine Estimated GFR BUN/Creatinine Ratio Glucose Uric Acid 4.8 Calcium Total Bilirubin AST ALT Alkaline Phosphatase Total Protein Albumin Globulin Albumin/Globulin Ratio Urine Color Yellow Urine Appearance Cloudy Urine pH 7.0 Ur Specific [place] 1.020 Urine Protein 2+ H Urine Glucose (UA) Negative Urine Ketones Negative Urine Occult Blood Trace-intact Urine Nitrate Negative Urine Bilirubin Negative Urine Urobilinogen 0.2 Ur Leukocyte Esterase Negative Urine RBC 1-5/hpf Urine WBC 5-10/hpf H Ur Squamous Epith Cells >30 /hpf H Urine Bacteria Many (>30) H Ur Culture Indicated? Cult not indicated Blood Type B Positive Antibody Screen Negative Crossmatch See Detail Assessment and Plan Assessment and Plan Assessment and Plan narrative: Assessment: 33-year-old 1 para 0 at 38 weeks gestation with severe preeclampsia, scheduled for primary section on 02/27/2019 Plan: Magnesium sulfate, 4 g load then 2 g maintenance dose Johnson catheter Labetalol 10 mg IV x1 Hydralazine 10 mg IV x1 Prepare for emergency section
[2019-02-21] MEDS: LACTATED RINGERS 1,000 ML 25 ML IV (17:31)
[2019-02-21 18:02] LABS: Add Manual Diff / Slide Review NO; Basophils Absolute Auto 0 /uL (0-100); Basophils Percent Auto 0.1 % (0-2); Eosinophils Absolute Auto 0 /uL (0-450); Eosinophils Percent Auto 0.1 % (2-4); Hematocrit 27.2 % (36-46); Lymphocytes Absolute Auto 2200 /uL (1100-4500); Lymphocytes Percent Auto 10.5 % (25-40); Mean Corpuscular HGB Conc 33.2 % (30-36); Mean Corpuscular Hemoglobin 29.3 PG (26-34); Mean Corpuscular Volume 88.3 fL (80-100); Monocytes Absolute Auto 1400 /uL (0-900); Monocytes Percent Auto 6.4 % (3-14); Neutrophils Absolute Auto 17600 /uL (1500-7000); Neutrophils Percent Auto 82.9 % (50-75); Platelet Count 250 X10^3/uL (150-400); Red Blood Cell Count 3.08 X10^6/uL (4.0-5.2); Red Cell Distribution Width 12.6 % (11.6-14.8); White Blood Cell Count 21.2 X10^3/uL (4.5-11.0)
[2019-02-21 18:15] LABS: Alanine Aminotransferase 54 IU/L (9-52); Albumin 2.6 g/dL (3.5-5.0); Alkaline Phosphatase 111 U/L (38-126); Aspartate Aminotransferase 47 IU/L (14-36); BUN Creatinine Ratio 11.7 (6-22); Bilirubin Total 0.2 mg/dL (0.2-1.3); Bilirubin Unconjugated 0.2 mg/dL (0.0-1.1); Blood Urea Nitrogen 7 mg/dL (7-17); Calcium 7.6 mg/dL (8.4-10.2); Carbon Dioxide 18 mmol/L (22-32); Chloride 105 mmol/L (98-107); Estimated Glomerular Filt Rate > 60.0 mL/min (>60); Globulin 2.5 g/dL (1.7-4.1); Glucose 115 mg/dL (70-100); HEMOLYSIS < 15 (0-50); Potassium 4.1 mmol/L (3.4-5.1); Sodium 131 mmol/L (137-145); Total Protein 5.1 g/dL (6.3-8.2); Uric Acid 4.4 mg/dL (2.5-6.2)
[2019-02-21 18:23] LABS: Magnesium 4.6 mg/dL (1.6-2.3)
--- NOTE | 2019-02-21 21:43 | PC.NURSE ---
Addendum entered by Bernice Jessica R.N. 02/21/19 23:27: bedside report given. Pt able to say the year is 2018. Brisk tendon reflexes. Original Note: prince obando pt received from PACU. Pt has left radial Arterial line in place with good square test waveform and pleth with dicrotic notch. magnesium sulfate gtt infusing at 2 grams/hr. Aquacel drsg to Suprapubic CDI. Escorted pt to CT scan at 16:25 with monitor via bed. pt used breast pump twice, each 15 minutes. No milk or colostrum seen. Nipples intact.
[2019-02-22] VITALS (23 sets, daily range): BP systolic 100–145; BP diastolic 66–92; PULSE 71–105; RESP 13–20; TEMP 36.6–37; O2SAT 20–100
[2019-02-22] MEDS: KETOROLAC 30 MG/ML VIAL IV ×3 (00:21→12:27)
[2019-02-22 00:54] LABS: Magnesium 5.8 mg/dL (1.6-2.3)
[2019-02-22] MEDS: HYDROMORPHONE PCA (6MG/30ML) 6 MG/30 ML PCA.VIAL IV (06:34)
[2019-02-22 07:06] LABS: Add Manual Diff / Slide Review NO; Basophils Absolute Auto 100 /uL (0-100); Basophils Percent Auto 0.5 % (0-2); Eosinophils Absolute Auto 0 /uL (0-450); Eosinophils Percent Auto 0.1 % (2-4); Hematocrit 22.4 % (36-46); Hemoglobin 7.4 g/dL (12.0-16.0); Lymphocytes Absolute Auto 2400 /uL (1100-4500); Lymphocytes Percent Auto 16.3 % (25-40); Mean Corpuscular HGB Conc 33.3 % (30-36); Mean Corpuscular Hemoglobin 29.3 PG (26-34); Monocytes Absolute Auto 900 /uL (0-900); Monocytes Percent Auto 6.4 % (3-14); Neutrophils Absolute Auto 11300 /uL (1500-7000); Neutrophils Percent Auto 76.7 % (50-75); Platelet Count 211 X10^3/uL (150-400); Red Blood Cell Count 2.54 X10^6/uL (4.0-5.2); Red Cell Distribution Width 12.7 % (11.6-14.8); White Blood Cell Count 14.7 X10^3/uL (4.5-11.0)
[2019-02-22 07:14] LABS: BUN Creatinine Ratio 11.4 (6-22); Blood Urea Nitrogen 8 mg/dL (7-17); Carbon Dioxide 21 mmol/L (22-32); Chloride 99 mmol/L (98-107); Estimated Glomerular Filt Rate > 60.0 mL/min (>60); Glucose 126 mg/dL (70-100); HEMOLYSIS 18 (0-50); Potassium 4.2 mmol/L (3.4-5.1); Sodium 127 mmol/L (137-145); Uric Acid 4.8 mg/dL (2.5-6.2)
[2019-02-22 07:19] LABS: Magnesium 6.5 mg/dL (1.6-2.3)
[2019-02-22] MEDS: MAGNESIUM SULFATE 20 GM/500 ML IV.SOLN IV (09:30)
--- NOTE | 2019-02-22 09:46 | PC.NURSE ---
PT ALERT/ORIENTED X 3 SHARP RECALL THIS AM AND NEURO STATUS WNL- PAIN CONTROLLED WITH [employer]ILAUDID BUSINESS RULES ANALYST- WILL ATTEMPT PO PAIN RX UPON WAKING UP- SHE ATE BREAKFAST AND C/O NO NAUSEA, HAS NOT DANGLED YET- AND ALLOWING PT TO SLEEP- HER VSS AND BABY WAS IN ROOM AND LATCHED TO EACH BREAST FOR APPROX 8- 10 MINUTES EACH SIDE LONGER TO THE LEFT BREAST- FATHER AT BEDSIDE AND ALL QUESTIONS ANSWER -GARCIA PATENT AND CLEAR LUNGS - MAGNESIUM INFUSION CONTINUES- CALL TO DR. BOCANEGRA TO ASK ABOUT ART LINE REMOVAL- AWAITNG CALL BACK
[2019-02-22] MEDS: DOCUSATE 250 MG CAPSULE PO (10:25)
[2019-02-22] MEDS: OXYCODONE/ACETAMINOPHEN 5/325 TABLET 2 TAB PO (10:25)
[2019-02-22] MEDS: ONDANSETRON 4 MG ODT PO (10:30)
--- NOTE | 2019-02-22 11:41 | PC.NURSE ---
pt tolerated bath and oral care well - stood at edge of bed and did well.- saturated pad changed and cath care completed- left wrist radial art line d/c'd - vss attempting po pain control with po percocet instead of [employer] dilaudid- report to next rn given
[2019-02-22] MEDS: SODIUM CHLORIDE 0.9% 1,000 ML 25 ML IV (11:42)
[2019-02-22] MEDS: WATER IV (11:43)
[2019-02-22] MEDS: DEXTROSE 5% IV (11:43)
[2019-02-22] MEDS: CALCIUM GLUCONATE IV (11:43)
--- NOTE | 2019-02-22 13:35 | PC.NURSE ---
and baby in room. pt holding baby. Magnesium gtt at 50ml/hr. NS at 25ml/hr. Calcium gluc iv given.
[2019-02-22] MEDS: OXYCODONE IR 5 MG TABLET PO ×3 (13:56→23:37)
[2019-02-22 14:08] LABS: BUN Creatinine Ratio 8.9 (6-22); Blood Urea Nitrogen 8 mg/dL (7-17); Carbon Dioxide 22 mmol/L (22-32); Chloride 98 mmol/L (98-107); Estimated Glomerular Filt Rate > 60.0 mL/min (>60); Glucose 110 mg/dL (70-100); HEMOLYSIS < 15 (0-50); Potassium 4.2 mmol/L (3.4-5.1); Sodium 128 mmol/L (137-145)
[2019-02-22 14:11] LABS: Magnesium 6.5 mg/dL (1.6-2.3)
[2019-02-22 14:13] LABS: Hematocrit 20.9 % (36-46); Hemoglobin 6.9 g/dL (12.0-16.0)
[2019-02-22] MEDS: ONDANSETRON 4 MG/2 ML INJ IV ×2 (15:53→23:37)
[2019-02-22 18:28] LABS: Add Manual Diff / Slide Review NO; Basophils Absolute Auto 0 /uL (0-100); Basophils Percent Auto 0.3 % (0-2); Eosinophils Absolute Auto 0 /uL (0-450); Eosinophils Percent Auto 0.1 % (2-4); Lymphocytes Absolute Auto 2300 /uL (1100-4500); Lymphocytes Percent Auto 14.9 % (25-40); Mean Corpuscular HGB Conc 33.1 % (30-36); Mean Corpuscular Hemoglobin 29.3 PG (26-34); Mean Corpuscular Volume 88.5 fL (80-100); Monocytes Absolute Auto 1100 /uL (0-900); Monocytes Percent Auto 6.9 % (3-14); Neutrophils Absolute Auto 12000 /uL (1500-7000); Neutrophils Percent Auto 77.8 % (50-75); Platelet Count 212 X10^3/uL (150-400); Red Blood Cell Count 2.24 X10^6/uL (4.0-5.2); Red Cell Distribution Width 13.2 % (11.6-14.8); White Blood Cell Count 15.4 X10^3/uL (4.5-11.0)
[2019-02-22 18:29] LABS: Hematocrit 19.8 % (36-46); Hemoglobin 6.6 g/dL (12.0-16.0)
[2019-02-22 18:46] LABS: Alanine Aminotransferase 50 IU/L (9-52); Aspartate Aminotransferase 37 IU/L (14-36); Blood Urea Nitrogen 9 mg/dL (7-17); Calcium 6.6 mg/dL (8.4-10.2); Carbon Dioxide 21 mmol/L (22-32); Chloride 99 mmol/L (98-107); Estimated Glomerular Filt Rate > 60.0 mL/min (>60); Glucose 145 mg/dL (70-100); HEMOLYSIS < 15 (0-50); Sodium 128 mmol/L (137-145); Uric Acid 5.4 mg/dL (2.5-6.2)
[2019-02-22 18:53] LABS: Magnesium 6.3 mg/dL (1.6-2.3)
--- NOTE | 2019-02-22 20:10 | CM.SWNOTE ---
Reason for Admission: Severe Preeclampsia complicating hypertension. PCP: Dr. Claudette Albright Payor: [facility] Out [facility] [employer]IC[facility] met with pt in the ICU to assess immediate needs, and support/resource needs upon discharge. Pt declined the need for Home Health or any other in-home support services. She feels that her family can provide the care that she will need upon discharge. Initially when she presented to the ED on 02/21, she had significant changes in her mentation . This was demonstrated by an inability to answer questions appropriately, confusion, balance problems and not oriented to date/time. Due to her severe preeclampsia, hyptension and mentation changes, she was taken to L&D for urgent . Her mentation has since cleared to baseline, and she is now alert and oriented x3. Her spouse is remaining with the baby in L&D, and the baby is being brought over frequently for feeding and holding time. No further needs identified at this time. Discharge Planning/Care Management CM Discharge Assessment Start: 02/22/19 17:11 Freq: Status: Active Protocol: Document 02/22/19 20:00 DPL (Rec: 02/22/19 20:10 DPL [id number]) Discharge Planning Assessment Assigned Metal Mine Inspector JIMBO Marin DPOA/Assigned Designee Name Bebeto Chong Contact Information Advance Directives? No Advance Directives on File No History Provided By Patient Has Patient been admitted in last 30 No days? Prior Living Arrangements House Household Members spouse Type of transporation used prior to Drives own vehicle admit Facility Name Admitted From: N/A Independent with ADL's No Is patient alert and oriented? Pt is requiring assistance with bathing while inpt. Independent at home. Comment None. Comment No DME needed at this time. Comment Pt denies the need for any resources or in-home assistance once discharged. She feels that she has ample support through her family. Comment None identified at this time. Discharge Plan Home Transportation Arrangement will drive pt home in their own vehicle. Additional Comment Pt declines the offer of any referrals for additional services or support. Inpatient Status as of 02/21/19
--- NOTE | 2019-02-22 20:26 | PM.PNPO.1 ---
Subjective Date Patient Seen: 02/22/19 Time Patient Seen: 20:26 Interval history: Patient is a 33-year-old 1 para 1 postop day # 1 status post emergent low-transverse section secondary to severe preeclampsia Patient is in the intensive care unit. Her pain is well controlled. is going relatively well. She is passing flatus. She is tolerating a diet. Exam Vital Signs (past 8 hours): - 02/22/19 12:47 02/22/19 13:00 02/22/19 13:37 Temperature 98.3 F Pulse Rate 98 H Respiratory Rate 18 Blood Pressure 142/86 H Pulse Oximetry 99 99 02/22/19 15:10 Temperature 98.1 F Pulse Rate Respiratory Rate 17 Blood Pressure 143/76 H Pulse Oximetry 99 Oxygen Delivery Method Room Air Oxygen Flow Rate 0 Narrative Exam Narrative: Blood pressure is 120 is to 150s over 80s to 90s Urine output greater than 100 cc an hour Generally: Patient lying in bed, no acute distress Lungs: Clear to auscultation bilaterally Cardiovascular: Regular rate and rhythm Abdomen: Soft, good bowel sounds Fundus: Firm at U -1 Extremities: 1+ pitting edema, DTRs 2+, SCDs in place Objective Labs Result Diagrams: 02/22/19 18:15 02/22/19 18:15 Labs: Laboratory Results - last 24 hr 02/22/19 02/22/19 02/22/19 00:20 06:54 06:54 WBC 14.7 H RBC 2.54 L Hgb 7.4 L Hct 22.4 L MCV 88.0 MCH 29.3 MCHC 33.3 RDW 12.7 Plt Count 211 Neut % (Auto) 76.7 H Lymph % (Auto) 16.3 L [place] % (Auto) 6.4 Eos % (Auto) 0.1 L Baso % (Auto) 0.5 Neut # (Auto) 09062 H Lymph # (Auto) 2400 [place] # (Auto) 900 Eos # (Auto) 0 Baso # (Auto) 100 Sodium 127 L Potassium 4.2 Chloride 99 Carbon Dioxide 21 L BUN 8 Creatinine 0.70 Estimated GFR > 60.0 BUN/Creatinine Ratio 11.4 Glucose 126 H Uric Acid 4.8 Calcium 7.0 L Magnesium 5.8 H* 6.5 H* AST ALT 02/22/19 02/22/19 02/22/19 13:46 13:46 18:15 WBC 15.4 H RBC 2.24 L Hgb 6.9 L* 6.6 L* Hct 20.9 L* 19.8 L* MCV 88.5 MCH 29.3 MCHC 33.1 RDW 13.2 Plt Count 212 Neut % (Auto) 77.8 H Lymph % (Auto) 14.9 L [place] % (Auto) 6.9 Eos % (Auto) 0.1 L Baso % (Auto) 0.3 Neut # (Auto) 25850 H Lymph # (Auto) 2300 [place] # (Auto) 1100 H Eos # (Auto) 0 Baso # (Auto) 0 Sodium 128 L Potassium 4.2 Chloride 98 Carbon Dioxide 22 BUN 8 Creatinine 0.90 Estimated GFR > 60.0 BUN/Creatinine Ratio 8.9 Glucose 110 H Uric Acid Calcium 7.0 L Magnesium 6.5 H* AST ALT 02/22/19 18:15 WBC RBC Hgb Hct MCV MCH MCHC RDW Plt Count Neut % (Auto) Lymph % (Auto) [place] % (Auto) Eos % (Auto) Baso % (Auto) Neut # (Auto) Lymph # (Auto) [place] # (Auto) Eos # (Auto) Baso # (Auto) Sodium 128 L Potassium 4.0 Chloride 99 Carbon Dioxide 21 L BUN 9 Creatinine 0.90 Estimated GFR > 60.0 BUN/Creatinine Ratio 10.0 Glucose 145 H Uric Acid 5.4 Calcium 6.6 L Magnesium 6.3 H* AST 37 H ALT 50 Assessment & Plan Post-op Postoperative Procedures Operation Date: 02/21/19 12:30 Actual Procedures Side Surgeon p Section-Primary Not Applicable Claudette Albright MD Postoperative day: 1 Postoperative status: doing well and other (Severe preeclampsia) Postoperative status narrative: POD#1 s/p Emergent LTCS due to severe preeclampsia, doing well BP stable Urine output stable, sodium low Postoperative plan: see orders Postoperative plan narrative: Replace sodium Continue Magnesium sulfate until tomorrow morning Transfer back to Center in morning if everything is stable Time Spent With Patient 15-24 minutes Quality VTE Deep Vein Thrombosis/Pulmonary Embolism Present on Admission: No
[2019-02-22] MEDS: hydrOXYzine pamoate 25 MG CAPSULE PO (22:03)
[2019-02-22] MEDS: IBUPROFEN 600 MG TABLET PO (22:06)
[2019-02-23] VITALS (27 sets, daily range): BP systolic 119–167; BP diastolic 55–92; PULSE 79–119; RESP 12–27; TEMP 36.6–37.1; O2SAT 96–97
[2019-02-23 00:25] LABS: Magnesium 6.4 mg/dL (1.6-2.3)
[2019-02-23] MEDS: SODIUM CHLORIDE 0.9% 1,000 ML 100 ML IV (03:49)
[2019-02-23] MEDS: IBUPROFEN 600 MG TABLET PO ×3 (04:13→19:23)
[2019-02-23] MEDS: hydrOXYzine pamoate 25 MG CAPSULE PO (04:16)
[2019-02-23] MEDS: MAGNESIUM SULFATE 20 GM/500 ML IV.SOLN IV ×2 (05:59→11:06)
[2019-02-23] MEDS: DOCUSATE 250 MG CAPSULE PO (08:40)
[2019-02-23] MEDS: ACETAMINOPHEN 325 MG TABLET 650 MG PO ×3 (08:40→23:28)
[2019-02-23 09:57] LABS: Add Manual Diff / Slide Review NO; Basophils Absolute Auto 200 /uL (0-100); Eosinophils Absolute Auto 0 /uL (0-450); Eosinophils Percent Auto 0.2 % (2-4); Lymphocytes Absolute Auto 1900 /uL (1100-4500); Lymphocytes Percent Auto 12.4 % (25-40); Mean Corpuscular HGB Conc 33.2 % (30-36); Mean Corpuscular Hemoglobin 29.4 PG (26-34); Mean Corpuscular Volume 88.6 fL (80-100); Monocytes Absolute Auto 1100 /uL (0-900); Neutrophils Absolute Auto 12100 /uL (1500-7000); Neutrophils Percent Auto 79.4 % (50-75); Platelet Count 203 X10^3/uL (150-400); Red Blood Cell Count 2.18 X10^6/uL (4.0-5.2); Red Cell Distribution Width 13.2 % (11.6-14.8); White Blood Cell Count 15.2 X10^3/uL (4.5-11.0)
[2019-02-23 10:01] LABS: Hematocrit 19.3 % (36-46); Hemoglobin 6.4 g/dL (12.0-16.0)
[2019-02-23 10:02] LABS: BUN Creatinine Ratio 11.4 (6-22); Blood Urea Nitrogen 8 mg/dL (7-17); Carbon Dioxide 22 mmol/L (22-32); Chloride 104 mmol/L (98-107); Estimated Glomerular Filt Rate > 60.0 mL/min (>60); Glucose 179 mg/dL (70-100); HEMOLYSIS 47 (0-50); Potassium 4.9 mmol/L (3.4-5.1); Sodium 131 mmol/L (137-145)
[2019-02-23 10:05] LABS: Magnesium 6.6 mg/dL (1.6-2.3)
[2019-02-23] MEDS: CALCIUM GLUCONATE 4.65 MEQ in SODIUM CHLORIDE 0.9% 50 ML 120 ML IV (11:03)
[2019-02-23] MEDS: LABETALOL 100 MG TABLET 200 MG PO ×2 (12:32→20:36)
[2019-02-23 14:31] LABS: Hemoglobin 6.1 g/dL (12.0-16.0)
[2019-02-23 14:35] LABS: Hematocrit 18.4 % (36-46)
--- NOTE | 2019-02-23 14:38 | DI.US.S_ITS ---
PROCEDURE: US ABDOMEN LIMITED INDICATIONS: RULE OUT HEMATOMA OR FREE FLUID; STATUS POST , LOW HEMATOCRIT AND HEMOGLOBIN TECHNIQUE: Real-time focused scanning was performed of the abdomen, with image documentation. COMPARISON: None. FINDINGS: Targeted sonographic evaluation of the abdomen and pelvis demonstrated no substantial amount of free fluid, obvious fluid collection, or hematoma. Limited evaluation of the liver and uterus appear unremarkable. IMPRESSION: Limited sonographic evaluation of the abdomen/pelvis demonstrates no evidence for substantial free fluid, organized fluid collection, or hematoma. Dictated by: Dawson Calderón M.D. on 02/23/2019 18:55 Approved by: Dawson Calderón M.D. on 02/23/2019 at 18:58
--- NOTE | 2019-02-23 15:22 | PC.NURSE ---
Addendum entered by Foreign Recio R.N. 02/24/19 12:02: Late entry for 02/23 at 1425: D/c'd ocampo catheter with tip intact. Pt tolerated well. Original Note: Weaned mg+ sulfate to off at 1400 per MD orders and removed ocampo catheter. Pt up to chair 1PA and FWW. Tolerated well. BP WNL. Dr. Albright instructed to call her (not Dr. Hansen) for any concerns and if SBP greater than 160 and/or DBP greater than 100.
[2019-02-23] MEDS: SIMETHICONE 80 MG TABLET 160 MG PO (16:39)
--- NOTE | 2019-02-23 17:18 | PC.NURSE ---
Addendum entered by Luana Goins R.N. 02/23/19 22:24: Late entry from 1999: offered to assist pt with breast pump, Pt states that she does not wish to deal with that today. Educated to breast feeding, answered pt questions. Addendum entered by Luana Goins R.N. 02/23/19 22:19: 2015 -Pt agreeable to ambulate around the unit. Using pillow to splint with cough, continues to report as non-productive. Pt currently reports pain as controlled with apap and ibuprofen. Pt reports that other pill gave me strange dreams. Pt requesting to avoid narcotics if possible. VSS. Monitor. Addendum entered by Luana Goins R.N. 02/23/19 21:08: 1999 - Pt up to the bathroom states that she is feeling better. 1st unit of PRBC infusion complete. Sandhya-pad with scant drainage. Fundus firm. Assist to position for comfort. Snack provided. 2nd unit PRBC initiated. Original Note: 1700 - Pt up to the bathroom, able to void 600cc following ocampo catheter removal @ 1400. Pt sandhya-pad with large clot approximately 3 inches by 1 inch, scant additional drainage noted on pad. Return to bed. Fundus remains firm and approximately 3 finger width below umbilicus. US tech to perform abd U.S. per order
[2019-02-24 00:08] VITALS: BP 133/55; PULSE 83
[2019-02-24 01:57] VITALS: BP 146/71; PULSE 83; RESP 20; O2SAT 97
[2019-02-24] MEDS: IBUPROFEN 600 MG TABLET PO ×2 (04:36→10:18)
[2019-02-24 04:38] VITALS: BP 147/73; PULSE 90; RESP 20; TEMP 36.8; O2SAT 100
--- NOTE | 2019-02-24 06:32 | PC.NURSE ---
Pain well controlled on tylenol and motrin. Voiding without difficulty. Ambulated in unit X 2 overnight. BP stable. Pt expresses wishes to go home today. She remains in good spirits and is talkative with staff.
[2019-02-24 07:29] VITALS: BP 152/87; PULSE 74; RESP 16; TEMP 37.2; O2SAT 97
[2019-02-24 07:33] LABS: Hematocrit 25.3 % (36-46); Hemoglobin 8.4 g/dL (12.0-16.0); Mean Corpuscular HGB Conc 28.9 % (30-36); Mean Corpuscular Hemoglobin 25.3 PG (26-34); Mean Corpuscular Volume 86.3 fL (80-100); Red Blood Cell Count 2.93 X10^6/uL (4.0-5.2); Red Cell Distribution Width 13.8 % (11.6-14.8); White Blood Cell Count 19.4 X10^3/uL (4.5-11.0)
[2019-02-24 07:34] LABS: Add Manual Diff / Slide Review YES; Platelet Count 209 X10^3/uL (150-400)
[2019-02-24 07:43] LABS: Alanine Aminotransferase 70 IU/L (9-52); Albumin 2.4 g/dL (3.5-5.0); Alkaline Phosphatase 85 U/L (38-126); Aspartate Aminotransferase 62 IU/L (14-36); BUN Creatinine Ratio 16.7 (6-22); Bilirubin Total 0.2 mg/dL (0.2-1.3); Blood Urea Nitrogen 10 mg/dL (7-17); Calcium 6.8 mg/dL (8.4-10.2); Carbon Dioxide 23 mmol/L (22-32); Chloride 110 mmol/L (98-107); Estimated Glomerular Filt Rate > 60.0 mL/min (>60); Globulin 2.4 g/dL (1.7-4.1); Glucose 125 mg/dL (70-100); HEMOLYSIS < 15 (0-50); Sodium 137 mmol/L (137-145); Total Protein 4.8 g/dL (6.3-8.2)
[2019-02-24] MEDS: ACETAMINOPHEN 325 MG TABLET 650 MG PO (08:05)
[2019-02-24] MEDS: DOCUSATE 250 MG CAPSULE PO (08:06)
[2019-02-24] MEDS: LABETALOL 100 MG TABLET 200 MG PO (08:06)
[2019-02-24 09:07] LABS: Neutrophils Absolute Manual 16296 /uL (3000-5900); Total Cells Counted 100
[2019-02-24 09:08] LABS: Anisocytosis 1+; Macrocytosis 1+
[2019-02-24] MEDS: TET,DIPH,PERTUSS(ACELL),VAC/PF 0.5 ML SYRINGE IM (10:15)
--- NOTE | 2019-02-24 11:23 | PC.NURSE ---
Addendum entered by Foreign Recio R.N. 02/24/19 13:32: Pt was escorted to POV with and baby by center RN in no acute distress. Addendum entered by Foreign Recio R.N. 02/24/19 12:40: Pt transferred from chair to w/c and is escorted to center by this RN for cont. d/c teaching. All belongings gathered and sent with pt/. Original Note: Pt to d/c home today per MD order. Medications sent electronically to [facility] pharmacy by Dr. Albright. D/C packet and d/c teaching provided to and reviewed with pt. Discussed s/s of elevated BP, post op incision/dsg care, instructed to leave dsg in place until post op appt, reviewed s/s of post op infx. Reviewed medication list, rx, doses, routes, times, side effects, monitoring parameters. Instructed pt to monitor BP and HR with newly increased dose of labetolol and notify MD for uncontrolled BP post med administration (SBP greater than 160 and/or DBP greater than 100). Instructed to change positions slowly to avoid orthostatic hypotension. Instructed to call for f/u appt tomorrow since today is Monday and this RN is unable to do so. Per Dr. Albright, leadership development consultant unavailable today. Pt will need to f/u outpt. She is made aware of same. Assisted pt to shower room. She performed hygiene care independently and required minimal assist with lower extremity dsg. Ambulated back to room with steady gait. and baby at bedside. Pt requests breast pump. Provided set up assist. Plan is to continue d/c education in center with L&D RN and then d/c home.
--- NOTE | 2019-02-24 14:38 | CM.DPC ---
DCP Discharge Home Per MD, pt medically stable to d/c home today with no identified barriers to discharge. Per Rn, no concerns at this time. Plan: Patient to d/c home via family POV today and no SW needs at this time. JIMBO Chan
--- NOTE | 2019-02-24 20:00 | PM.OBPN.1 ---
Subjective - OB Patient comments: no complaints, pain well controlled and flatus present [place] baby status: doing well and bottle feeding well [place] feeding status: breast and bottle feeding Narrative: Patient is a 33-year-old 1 para 1 postop day # 2 from emergent section secondary to severe preeclampsia Patient is tolerating a diet. She is oriented. is going okay. consultation done. Date Patient Seen: 02/23/19 Time Patient Seen: 12:45 Exam Vital Signs (past 8 hours): Oxygen Delivery Method Room Air Oxygen Flow Rate 0 Narrative Exam Narrative: Generally: Patient is sitting up in bed, holding infant, no acute distress Lungs: Clear to auscultation bilaterally Cardiovascular: Regular rate and rhythm Abdomen: Soft and flat. Good bowel sounds Fundus: Firm at U -1 Incision: Clean dry and intact with Aquacel dressing Extremities: 1+ pitting edema. DTRs 1+, no clonus. Objective Labs Result Diagrams: 02/24/19 07:25 02/24/19 07:25 Labs: Laboratory Results - last 24 hr 02/21/19 02/24/19 02/24/19 12:52 07:25 07:25 WBC 19.4 H RBC 2.93 L Hgb 8.4 L Hct 25.3 L MCV 86.3 MCH 25.3 L MCHC 28.9 L D RDW 13.8 Plt Count 209 Neut % (Auto) Not Reportable Lymph % (Auto) Not Reportable [place] % (Auto) Not Reportable Eos % (Auto) Not Reportable Baso % (Auto) Not Reportable Lymph # (Auto) Not Reportable [place] # (Auto) Not Reportable Baso # (Auto) Not Reportable Total Counted 100 Seg Neutrophils % 63.0 Band Neutrophils % 21.0 H Lymphocytes % (Manual) 6.0 L Atypical Lymphs % 3.0 H Monocytes % (Manual) 4.0 Eosinophils % (Manual) 3.0 Neutrophils # (Manual) 13136 H RBC Morphology See below Anisocytosis 1+ H Macrocytosis 1+ H Sodium 137 Potassium 4.0 Chloride 110 H Carbon Dioxide 23 BUN 10 Creatinine 0.60 Estimated GFR > 60.0 BUN/Creatinine Ratio 16.7 Glucose 125 H Calcium 6.8 L Total Bilirubin 0.2 AST 62 H ALT 70 H Alkaline Phosphatase 85 Total Protein 4.8 L Albumin 2.4 L Globulin 2.4 Albumin/Globulin Ratio 1.0 Blood Type B Positive Antibody Screen Negative Crossmatch See Detail Assessment & Plan Plan day: 2 plan OB: other Comments: Labetalol 200 mg p.o. b.i.d. started Recheck H&H Replace calcium Wean magnesium sulfate 0.5gm Q hour Once magnesium discontinued, discontinue Johnson catheter Patient may shower this evening Ambulate Transfer to the Center if able Time Spent With Patient Total time spent is greater than 50% in coordination of care (as documented) at patient's floor/unit and/or counseling patient: 15-24 minutes
--- NOTE | 2019-02-24 20:04 | P.PNOB_ITS ---
Subjective - OB Patient comments: no complaints, pain well controlled and flatus present [place] baby status: doing well and bottle feeding well [place] feeding status: breast and bottle feeding Narrative: Patient is a 33-year-old 1 para 1 postop day # 2 from emergent section secondary to severe preeclampsia Patient is tolerating a diet. She is oriented. is going okay. consultation done. Date Patient Seen: 02/23/19 Time Patient Seen: 12:45 Exam Vital Signs (past 8 hours): Oxygen Delivery Method Room Air Oxygen Flow Rate 0 Narrative Exam Narrative: Generally: Patient is sitting up in bed, holding infant, no acute distress Lungs: Clear to auscultation bilaterally Cardiovascular: Regular rate and rhythm Abdomen: Soft and flat. Good bowel sounds Fundus: Firm at U -1 Incision: Clean dry and intact with Aquacel dressing Extremities: 1+ pitting edema. DTRs 1+, no clonus. Objective Labs Result Diagrams: 02/24/19 07:25 02/24/19 07:25 Labs: Laboratory Results - last 24 hr 02/21/19 02/24/19 02/24/19 12:52 07:25 07:25 WBC 19.4 H RBC 2.93 L Hgb 8.4 L Hct 25.3 L MCV 86.3 MCH 25.3 L MCHC 28.9 L D RDW 13.8 Plt Count 209 Neut % (Auto) Not Reportable Lymph % (Auto) Not Reportable [place] % (Auto) Not Reportable Eos % (Auto) Not Reportable Baso % (Auto) Not Reportable Lymph # (Auto) Not Reportable [place] # (Auto) Not Reportable Baso # (Auto) Not Reportable Total Counted 100 Seg Neutrophils % 63.0 Band Neutrophils % 21.0 H Lymphocytes % (Manual) 6.0 L Atypical Lymphs % 3.0 H Monocytes % (Manual) 4.0 Eosinophils % (Manual) 3.0 Neutrophils # (Manual) 08180 H RBC Morphology See below Anisocytosis 1+ H Macrocytosis 1+ H Sodium 137 Potassium 4.0 Chloride 110 H Carbon Dioxide 23 BUN 10 Creatinine 0.60 Estimated GFR > 60.0 BUN/Creatinine Ratio 16.7 Glucose 125 H Calcium 6.8 L Total Bilirubin 0.2 AST 62 H ALT 70 H Alkaline Phosphatase 85 Total Protein 4.8 L Albumin 2.4 L Globulin 2.4 Albumin/Globulin Ratio 1.0 Blood Type B Positive Antibody Screen Negative Crossmatch See Detail Assessment & Plan Plan day: 2 plan OB: other Comments: Labetalol 200 mg p.o. b.i.d. started Recheck H&H Replace calcium Wean magnesium sulfate 0.5gm Q hour Once magnesium discontinued, discontinue Johnson catheter Patient may shower this evening Ambulate Transfer to the Center if able Time Spent With Patient Total time spent is greater than 50% in coordination of care (as documented) at patient's floor/unit and/or counseling patient: 15-24 minutes
--- NOTE | 2019-02-24 20:09 | P.DS_ITS ---
Discharge Providers Date of admission: 02/21/19 11:41 Discharge Date: 02/24/19 Primary care physician: DONALDO Alanis Consults: 02/21/19 16:29 Consult to [employer] Routine Comment: Discharge provider: Claudette Albright MD Summary Date Patient Seen: 02/24/19 Time Patient Seen: 09:30 Procedures: Emergent primary low-transverse section Magnesium sulfate therapy IV management blood pressure Transfusion of 2 units of packed red blood cells Hospital Course: Patient is a 33-year-old 1 para 1 who presented through the emergency room with a severe headache and disorientation. She was found to have blood pressures in 250/[address] was done to rule out a stroke or bleed. She was transferred to Labor and delivery and prepared for an emergency se ction. She underwent an emergency section without complication. She had slight increased bleeding during the surgery and was injected with Hemabate and Pitocin into the fundus of the uterus. She went to the intensive care unit postoperatively and remained there for 2 days. She received 2 units of packed red blood cells for dropping hematocrit. This was thought to be be due to hemoconcentration on admission and then dilution from IV fluids postoperatively. She is discharged home on postop day # 3 with stable blood pressures in the 120s over 70s to 80s range. She is on labetalol 200 mg p.o. b.i.d.. Peripartum Data Delivery Method: Emergency Section Laceration description: None Episiotomy description: None Procedures: Emergency low-transverse section IV management of blood pressure Transfusion of 2 units of packed red blood cells Magnesium sulfate therapy complications: transfusion and uterine atony (Intraoperatively) Status at Discharge Cognitive/behavioral status at discharge: oriented Functional status at discharge: independent ambulation Overall status at discharge: patient is progressing back to baseline Time Spent with Patient Total time spent providing and/or coordinating discharge services: Less than 30 minutes Objective Labs Result Diagrams: 02/24/19 07:25 02/24/19 07:25 Labs: Laboratory Results - last 24 hr 02/21/19 02/24/19 02/24/19 12:52 07:25 07:25 WBC 19.4 H RBC 2.93 L Hgb 8.4 L Hct 25.3 L MCV 86.3 MCH 25.3 L MCHC 28.9 L D RDW 13.8 Plt Count 209 Neut % (Auto) Not Reportable Lymph % (Auto) Not Reportable [place] % (Auto) Not Reportable Eos % (Auto) Not Reportable Baso % (Auto) Not Reportable Lymph # (Auto) Not Reportable [place] # (Auto) Not Reportable Baso # (Auto) Not Reportable Total Counted 100 Seg Neutrophils % 63.0 Band Neutrophils % 21.0 H Lymphocytes % (Manual) 6.0 L Atypical Lymphs % 3.0 H Monocytes % (Manual) 4.0 Eosinophils % (Manual) 3.0 Neutrophils # (Manual) 05215 H RBC Morphology See below Anisocytosis 1+ H Macrocytosis 1+ H Sodium 137 Potassium 4.0 Chloride 110 H Carbon Dioxide 23 BUN 10 Creatinine 0.60 Estimated GFR > 60.0 BUN/Creatinine Ratio 16.7 Glucose 125 H Calcium 6.8 L Total Bilirubin 0.2 AST 62 H ALT 70 H Alkaline Phosphatase 85 Total Protein 4.8 L Albumin 2.4 L Globulin 2.4 Albumin/Globulin Ratio 1.0 Blood Type B Positive Antibody Screen Negative Crossmatch See Detail Exam Vital Signs (past 8 hours): Oxygen Delivery Method Room Air Oxygen Flow Rate 0 Narrative Exam Narrative: Generally: Patient is sitting up in bed, no acute distress Lungs: Clear to auscultation bilaterally Cardiovascular: Regular rate and rhythm Abdomen: Soft, good bowel sounds Fundus: Firm at U -1 Incision: Clean dry and intact with Aquacel dressing A extremities: 1+ pitting edema to the knees, 1+ DTRs, negative clonus, negative Alexandru Discharge Plan Discharge Plan Patient Disposition: Home Discharge comment: Call with fever, chills, redness or drainage around incision or bleeding vaginally more than a pad in an hour Discharge Med Rec/Prescriptions Prescriptions: New labetalol 200 mg tablet 100 mg PO BID Qty: 60 RF: 0 ibuprofen 600 mg tablet 600 mg PO TID Qty: 60 RF: 2 docusate sodium [Colace] 100 mg capsule 100 mg PO BID Qty: 20 RF: 2 Continued hydroxyzine HCl 25 mg tablet 25 mg PO TID-QID PRN (Reason: anxiety ) Qty: 20 RF: 1 Discontinued labetalol 100 mg tablet 100 mg PO BID Qty: 60 RF: 0 Follow up/Referrals: Claudette Albright MD [Physician] - 1 Week Nicole Kaufman ARNP [Primary Care Provider] - Provider Discharge Instructions Diet: Regular Activity: No heavy lifting Skin/Wound/Dressing Care Report to your healthcare provider any signs of infection, such as:: chills, fever, increased pain, unusual drainage and unusual redness Dressing: Do not remove Visit Report/Discharge Packet Instructions: Pre-eclampsia, DI for , Tetanus, Diphtheria, Pertussis (Tdap) Vaccine Discharge Data Primary Care Provider: Nicole Kaufman Attending Provider: Claudette Albright Admit Date/Time: 02/21/19 11:41 Discharges patient from system. Discharge Date/Time: 02/24/19 13:30
[2019-02-26 12:55] LABS: Ionized Calcium 4.2 mg/dL (4.8-5.6)
== END 2019-02-24 13:30 | disposition home or self-care (01) | DRG 787 ==
LOC: ED 11:24 → AC 11:44 → LABOR 12:03 → ICU 16:07
PROVIDERS: Admitting Provider Specialist; Emergency Provider Emergency Medicine; PCP Nurse Practitioner Family; Visit Provider Obstetrics & Gynecology
PROC: 10D00Z1 Extraction of Products of Conception, Low, Open Approach (ICD-10-PCS; CPT 59514; principal; 2019-02-21 12:30)
DX: O14.14 Severe pre-eclampsia complicating childbirth (principal); D62 Acute posthemorrhagic anemia; O16.3 Unspecified maternal hypertension, third trimester; O62.2 Other uterine inertia; Z3A.38 38 weeks gestation of pregnancy; Z37.0 Single live birth
CPT/HCPCS: 36415; 36430; 36591; 59050; 59514; 59515; 70450; 76705; 80048; 80053; 80076; 81001; 82330; 83735; 84450; 84460; 84550; 85014; 85018; 85025; 85610; 85730; 86850; 86900; 86901; 87797; 96374; 96375; 96376; 99282; 99284; P9016; 90715; J0131; J0330; J0360; J0610; J0690; J1170; J1885; J2270; J2405; J2590; J2704; J3475

== ENCOUNTER → 2019-02-27 12:44 | Outpatient (CLI) | payer OTHER, BC, SELFPAY ==
[2019-02-21 18:00] VITALS: BMI 50.1
[2019-02-27 13:09] LABS: Eosinophils Absolute Auto 100 /uL (0-450); Eosinophils Percent Auto 1.1 % (2-4); Hemoglobin 9.2 g/dL (12.0-16.0); Monocytes Absolute Auto 800 /uL (0-900)
[2019-02-27 13:13] LABS: Add Manual Diff / Slide Review NO; Basophils Absolute Auto 100 /uL (0-100); Basophils Percent Auto 0.5 % (0-2); Hematocrit 28.6 % (36-46); Lymphocytes Absolute Auto 1700 /uL (1100-4500); Mean Corpuscular HGB Conc 32.2 % (30-36); Mean Corpuscular Hemoglobin 28.6 PG (26-34); Mean Corpuscular Volume 88.8 fL (80-100); Neutrophils Absolute Auto 9200 /uL (1500-7000); Neutrophils Percent Auto 77.4 % (50-75); Platelet Count 358 X10^3/uL (150-400); Red Blood Cell Count 3.22 X10^6/uL (4.0-5.2); Red Cell Distribution Width 14.6 % (11.6-14.8); White Blood Cell Count 11.9 X10^3/uL (4.5-11.0)
[2019-02-27 13:34] LABS: Alanine Aminotransferase 47 IU/L (9-52); Aspartate Aminotransferase 28 IU/L (14-36); BUN Creatinine Ratio 17.1 (6-22); Blood Urea Nitrogen 12 mg/dL (7-17); Estimated Glomerular Filt Rate > 60.0 mL/min (>60); Uric Acid 4.3 mg/dL (2.5-6.2)
== END ==
PROVIDERS: PCP Nurse Practitioner Family; Visit Provider Obstetrics & Gynecology
DX: O11.9 Pre-existing hypertension with pre-eclampsia, unspecified trimester (principal)
CPT/HCPCS: 36415; 82565; 84450; 84460; 84520; 84550; 85025

== ENCOUNTER 2019-03-10 16:56 | Emergency (ER) | payer OTHER, BC, SELFPAY ==
[2019-02-21 18:00] VITALS: BMI 50.1
[2019-03-10 17:09] VITALS: BP 156/94; PULSE 101; RESP 20; TEMP 37.2; O2SAT 99
--- NOTE | 2019-03-10 17:27 | DI.US.S_ITS ---
PROCEDURE: US PELVIC COMPLETE INDICATIONS: C SECTION 02/21/19 SIGNIFICANT VAG BLEEDING TECHNIQUE: Real-time scanning was performed of the pelvic organs, with image documentation. Additional endovaginal scanning was necessary due to incomplete visualization of the adnexal and endometrial structures by transabdominal scanning. COMPARISON: [facility], CT, CT ABDOMEN PELVIS W CON, 03/10/2019, 17:48. FINDINGS: Transabdominal scanning: Limited scanning through the kidneys shows no hydronephrosis. No pathologic free abdominal or pelvic fluid. Endovaginal scanning: Uterus: Uterus measures 14.5 x 7.0 x 3.4 cm compatible with state. The endometrial cavity is filled with hyperdense fluid likely representing hemorrhage. No definite evidence of lower uterine segment dehiscence of the section site. Ovaries: Right adnexa measures 4.6 x 3.0 x 3.0 cm. Left adnexa measures 6.0 x 4.2 x 3.1 cm. Adnexa within normal limits for state. Adnexa are within normal limits for state. IMPRESSION: Large amount of fluid within the endometrial cavity likely representing hemorrhage. Dictated by: Dayna Ling MD, PhD on 03/10/2019 at 19:04 Approved by: Dayna Ling MD, PhD on 03/10/2019 at 19:08
--- NOTE | 2019-03-10 17:29 | ED.PREGNANCY ---
HPI - General Chief complaint: Vaginal Bleeding Stated complaint: recent C section, states gushing blood Time Seen by Provider: 03/10/19 17:07 Source: patient Mode of arrival: ambulatory Limitations: no limitations History of Present Illness HPI Narrative: Patient is a 33-year-old female who is status post from 02/21/2019, her course was complicated by acute hemorrhage from . She required 2 units of blood and was discharged. She has been doing well until today. She was breast-feeding she stood up and she had a huge gush of blood. She is having some lower abdominal pain and cramping. MD Complaint: vaginal bleeding Related Data Previous Rx's Medication Instructions Recorded docusate sodium [Colace] 100 mg PO BID #20 cap 02/24/19 hydroxyzine HCl 25 mg PO TID-QID PRN #20 tab 02/24/19 ibuprofen 600 mg PO TID #60 tab 02/24/19 hydrocodone 5 mg-acetaminophen 325 1 tab PO Q6H #30 tab 02/25/19 mg tablet ondansetron 4 mg disintegrating 4 mg PO Q6H PRN #20 tab 02/25/19 tablet labetalol 200 mg tablet 200 mg PO BID #60 tab 02/27/19 Allergies Allergy/AdvReac Type Severity Reaction Status Date / Time adhesive AdvReac Mild Rash Verified 02/21/19 10:55 silicone AdvReac Mild Rash and Verified 02/21/19 10:55 Hives Review of Systems Review of Systems ROS Unobtainable: All systems reviewed & are unremarkable except as noted in HPI and below Constitutional Denies chills, Denies fever(s), Denies lethargy and Denies weakness Eyes Denies change in vision, Denies eye discharge, Denies irritation and Denies loss of vision Cardiovascular Denies chest pain, Denies irregular heart rhythm, Denies lightheadedness, Denies palpitations, Denies dyspnea, Denies dyspnea on exertion and Denies orthopnea Respiratory Denies cough, Denies dyspnea, Denies dyspnea on exertion and Denies wheezing Genitourinary Reports as per HPI Musculoskeletal Denies back pain, Denies muscle weakness, Denies numbness and Denies tingling Integumentary/Breasts Denies pruritus, Denies erythema, Denies rash and Denies wounds Neurologic Denies loss of vision, Denies numbness, Denies tingling and Denies weakness Endocrine Denies palpitations Allergic/Immunologic Denies wheezing PMFSH - Past Medical History Surgical history: Reports Family history: Reports no significant family history Exam Initial Vital Signs Initial Vital Signs: Vital Signs Temperature 99.0 F 03/10/19 17:09 Pulse Rate 101 H 03/10/19 17:09 Respiratory Rate 20 03/10/19 17:09 Blood Pressure 156/94 H 03/10/19 17:09 Pulse Oximetry 99 03/10/19 17:09 GENERAL: Well-appearing, well-nourished and in no acute distress. HEENT: Head atraumatic,EOMI, pupils reactive, face symmetric, moist mucous membranes CARDIOVASCULAR: Regular rate and rhythm without murmurs, rubs or gallops. RESPIRATORY: Breath sounds equal bilaterally, no wheezes rales or rhonchi. ABDOMEN: Soft, nontender. Normoactive bowel sounds all 4 quadrants. No guarding or rebound. PELVIC: She does actually have large amount of dark blood in vaginal vault pelvic exam is pain EXTREMITIES: Normal range of motion, no clubbing or edema. Neurovascularly intact NEUROLOGICAL: Alert and oriented x4.Normal gait and speech. Cranial nerves II through XII grossly intact. SKIN: Warm, dry, no laceration, no petechiae, no rashes or lesions. Course Orders Ordered: ED Orders 03/10/19 17:27 US pelvic complete Stat 03/10/19 17:30 Complete Blood Count AUTO DIFF Stat Comprehensive Metabolic Panel Stat Lactate (Lactic Acid) Stat Prothrombin Time INR Stat Type and Screen Stat 03/10/19 17:41 CT abdomen pelvis w con Stat Consultations Consultation #1: Dr. Tan has been updated on patient's symptoms. Has given her complicated history and wanted OB involved early. Agrees with waiting for labs and imaging. Time: 17:45 Vital Signs - 8 hr 03/10/19 17:09 Temperature 99.0 F Pulse Rate 101 H Respiratory Rate 20 Blood Pressure 156/94 H Pulse Oximetry 99 [facility] - OB/Uterine Contractions Lab Data Result diagrams: 03/10/19 17:30 03/10/19 17:30 [facility] Narrative Medical decision making narrative: Patient is slightly tachycardic she has significant history of recent hemorrhage during and anemia presenting with vaginal bleeding. Blood on exam looks old. She is mildly tender. Patient signed out to Dr. Garcia awaiting labs and imaging results. Ob is aware. Discharge Plan Departure Prescriptions: No Action hydrocodone-acetaminophen [[place]] 5-325 mg tablet 1 tab PO Q6H Qty: 30 RF: 0 ondansetron 4 mg tablet,disintegrating 4 mg PO Q6H PRN (Reason: nausea and vomiting) Qty: 20 RF: 0 labetalol 200 mg tablet 200 mg PO BID Qty: 60 RF: 2 ibuprofen 600 mg tablet 600 mg PO TID Qty: 60 RF: 2 hydroxyzine HCl 25 mg tablet 25 mg PO TID-QID PRN (Reason: anxiety ) Qty: 20 RF: 1 docusate sodium [Colace] 100 mg capsule 100 mg PO BID Qty: 20 RF: 2
--- NOTE | 2019-03-10 17:41 | DI.CT.S_ITS ---
PROCEDURE: CT ABDOMEN PELVIS W CON INDICATIONS: post c section TECHNIQUE: After the administration of intravenous contrast, 5 mm thick sections acquired from the diaphragm to the symphysis. 5 mm coronal and sagittal reformats were acquired. For radiation dose reduction, the following was used: automated exposure control, adjustment of mA and/or kV according to patient size. COMPARISON: None. FINDINGS: Image quality: Excellent. ABDOMEN: Lung bases: Lung bases are clear. Heart size is normal. Solid organs: Liver is normal in size and enhancement. Gallbladder is within normal limits. Biliary system is non dilated. Pancreas enhances normally. Spleen is normal in size and enhancement. No adrenal nodules. Kidneys demonstrate normal size and enhancement, without hydronephrosis. Peritoneum and bowel: Bowel loops demonstrate normal wall thickness and caliber. No free air. Trace free fluid noted in the lower pelvis. Trace free fluid noted anterior to the urinary bladder. The appendix is normal. Nodes and vessels: No retroperitoneal or mesenteric adenopathy by size criteria. Aorta and inferior vena cava are normal in size. Miscellaneous: No ventral hernias. Postoperative changes noted in the lower anterior pelvic wall compatible with section. PELVIS: Genitourinary: Bladder wall thickness is normal. Uterus is enlarged compatible with state. Hyperdense fluid noted in the endometrial cavity which likely represents blood. Heterogeneity noted in the lower uterine segment compatible with section. Miscellaneous: No inguinal hernias or adenopathy. Bones: No suspicious bony lesions. No vertebral body compression fractures. IMPRESSION: 1. Expected postsurgical change for section. 2. Trace free fluid in the pelvis with trace fluid anterior to the urinary bladder. If there is clinical concern for bladder injury, recommend CT cystogram for further evaluation. 3. No abscess. 4. No dilated loops of bowel. Dictated by: Dayna Ling MD, PhD on 03/10/2019 at 18:25 Approved by: Dayna Ling MD, PhD on 03/10/2019 at 18:31
[2019-03-10 17:58] LABS: Add Manual Diff / Slide Review NO; Basophils Absolute Auto 0 /uL (0-100); Basophils Percent Auto 0.2 % (0-2); Eosinophils Absolute Auto 100 /uL (0-450); Eosinophils Percent Auto 0.6 % (2-4); Hematocrit 35.1 % (36-46); Hemoglobin 11.2 g/dL (12.0-16.0); Lymphocytes Absolute Auto 2000 /uL (1100-4500); Lymphocytes Percent Auto 18.5 % (25-40); Mean Corpuscular Hemoglobin 27.8 PG (26-34); Monocytes Absolute Auto 900 /uL (0-900); Monocytes Percent Auto 8.1 % (3-14); Neutrophils Absolute Auto 7800 /uL (1500-7000); Neutrophils Percent Auto 72.6 % (50-75); Platelet Count 498 X10^3/uL (150-400); Red Blood Cell Count 4.04 X10^6/uL (4.0-5.2); Red Cell Distribution Width 14.8 % (11.6-14.8); White Blood Cell Count 10.8 X10^3/uL (4.5-11.0)
[2019-03-10 18:05] LABS: Prothrombin Time 11.6 SECONDS (10.1-12.7)
[2019-03-10 18:08] LABS: Alanine Aminotransferase 30 IU/L (9-52); Albumin Globulin Ratio 1.3 (1.0-2.8); Alkaline Phosphatase 80 U/L (38-126); Aspartate Aminotransferase 18 IU/L (14-36); BUN Creatinine Ratio 17.8 (6-22); Bilirubin Total 0.6 mg/dL (0.2-1.3); Blood Urea Nitrogen 16 mg/dL (7-17); Calcium 9.4 mg/dL (8.4-10.2); Carbon Dioxide 24 mmol/L (22-32); Chloride 104 mmol/L (98-107); Estimated Glomerular Filt Rate > 60.0 mL/min (>60); Globulin 3.1 g/dL (1.7-4.1); Glucose 106 mg/dL (70-100); HEMOLYSIS < 15 (0-50); Potassium 3.9 mmol/L (3.4-5.1); Sodium 139 mmol/L (137-145); Total Protein 7.1 g/dL (6.3-8.2)
--- NOTE | 2019-03-10 18:29 | PC.NURSE ---
US tech at BS
[2019-03-10 18:33] LABS: Lactate (Lactic Acid) 1.1 mmol/L (0.7-2.1)
[2019-03-10 19:30] VITALS: BP 128/67; PULSE 90; RESP 18; O2SAT 98
[2019-03-10 19:56] LABS: Hematocrit 33.6 % (36-46); Hemoglobin 11.2 g/dL (12.0-16.0)
--- NOTE | 2019-03-10 20:00 | PC.NURSE ---
repeat H and H drawn and sent to lab
[2019-03-10 20:05] VITALS: BP 120/69; PULSE 91; RESP 21; O2SAT 99
[2019-03-10 20:33] VITALS: BP 129/69; PULSE 90; RESP 19; O2SAT 97
== END 2019-03-10 21:00 | disposition home or self-care (01) ==
PROVIDERS: Emergency Medicine; Emergency Provider Emergency Medicine; PCP Nurse Practitioner Family
DX: O72.1 Other immediate postpartum hemorrhage (principal); R00.0 Tachycardia, unspecified
CPT/HCPCS: 36415; 36591; 74177; 76856; 80053; 83605; 85014; 85018; 85025; 85610; 86850; 86900; 86901; 99283; 99284; Q9967